=== PATIENT | male | born 1960 | race Caucasian/White ===

== ENCOUNTER 2022-05-12 17:23 | Emergency (ER) | payer OTHER ==
[~2022-05-12] VITALS: Ht 190.5 cm; Wt 108.9 kg
[2022-05-12 17:29] VITALS: BP 126/73
[2022-05-12 18:24] LABS: BASOPHILS # (AUTO) 0.1 K/uL (0.00-0.22); BASOPHILS % (AUTO) 1.2 % (0.0-2.0); EOSINOPHILS # (AUTO) 0.1 K/uL (0-0.4); EOSINOPHILS % (AUTO) 3.6 % (0.0-4.0); LYMPHOCYTES # (AUTO) 1.1 K/uL (2.0-11.5); LYMPHOCYTES % (AUTO) 26.6 % (20.5-51.1); MEAN CORPUSCULAR HEMOGLOBIN 31 pg (27-31); MEAN CORPUSCULAR HGB CONC 33 g/dL (33-37); MEAN CORPUSCULAR VOLUME 93.5 fL (80-94); MONOCYTES # (AUTO) 0.3 K/uL (0.8-1.0); MONOCYTES % (AUTO) 7.8 % (1.7-9.3); NEUTROPHILS # (AUTO) 2.5 K/uL (1.8-7.7); NEUTROPHILS % (AUTO) 60.8 % (42.2-75.2); PLATELET COUNT (AUTO) 188 K/uL (140-450); RED BLOOD CELL COUNT(AUTO) 3.85 MIL/uL (4.20-6.10); WHITE BLOOD COUNT (AUTO) 4.1 K/uL (4.8-10.8)
--- NOTE | 2022-05-12 18:30 | NUR ---
PT TAKEN TO CT VIA WC
[2022-05-12 18:54] LABS: ALBUMIN 3.6 g/dL (3.4-5.0); ANION GAP 10.9 (8-16); CARBON DIOXIDE 31.3 mmol/L (21-32); POTASSIUM 4.2 mmol/L (3.5-5.1); TOTAL BILIRUBIN 0.3 mg/dL (0.0-1.0)
[2022-05-12] MEDS ORDERED: KETOROLAC 60 MG/2 ML VIAL IM ONE (19:20)
--- NOTE | 2022-05-12 19:20 | NUR ---
DR YOUNG AT PT SIDE FOR EVAL
[2022-05-12] MEDS ORDERED: IBUP-2213 PO (19:25)
[2022-05-12 20:07] VITALS: BP 122/82
--- NOTE | 2022-05-12 20:07 | NUR ---
Patient discharged with v/s stable. Written and verbal after care instructions given and explained for abdominal pain, adult. Patient alert, oriented and verbalized understanding of instructions. Wheel Chair Assisted with by caregiver. All questions addressed prior to discharge. ID band removed. Patient advised to follow up with PMD. Rx of Ibuprofen given. Patient educated on indication of medication including possible reaction and side effects. Opportunity to ask questions provided and answered.
== END 2022-05-12 20:07 ==
LOC: MED 17:23
DX: R10.84 Generalized abdominal pain (principal); I10 Essential (primary) hypertension; E03.9 Hypothyroidism, unspecified; K21.9 Gastro-esophageal reflux disease without esophagitis
CPT/HCPCS: 36415; 74176; 80053; 83690; 85025; 96372; 99284; J1885

== ENCOUNTER 2022-06-04 20:15 | Inpatient (IN) | payer OTHER ==
[~2022-06-04] VITALS: Ht 172.7 cm; Wt 113.4 kg
[2022-06-04 20:15] VITALS: BP 137/87
[~2022-06-04 20:15] MED LIST: IBUP-2213 PO
--- NOTE | 2022-06-04 20:15 | NUR ---
NI WITH C/O SOB, FEVER, FROM [facility], SOA2 97 % ON NON REBREATHER 10L
--- NOTE | 2022-06-04 20:17 | NUR ---
MALIHA DAN ALS TO BED 03
[2022-06-04] MEDS ORDERED: NACL 0.9% 1,000 ML IV ONE (21:00)
[2022-06-04] MEDS ORDERED: VANCOMYCIN 1,000 MG in DEXTROSE 5% 250 ML IV ONE (21:20)
[2022-06-04] MEDS ORDERED: MEROPENEM 1,000 MG in NACL 0.9% 50 ML IV ONE (21:20)
[2022-06-04 21:21] LABS: BASOPHILS # (AUTO) 0.1 K/uL (0.00-0.22); BASOPHILS % (AUTO) 0.6 % (0.0-2.0); EOSINOPHILS % (AUTO) 0.4 % (0.0-4.0); HEMATOCRIT 36.7 % (36-52); HEMOGLOBIN 12.3 g/dL (12.0-18.0); LYMPHOCYTES # (AUTO) 0.7 K/uL (2.0-11.5); LYMPHOCYTES % (AUTO) 8.1 % (20.5-51.1); MEAN CORPUSCULAR HEMOGLOBIN 31 pg (27-31); MEAN CORPUSCULAR HGB CONC 34 g/dL (33-37); MEAN CORPUSCULAR VOLUME 93.1 fL (80-94); MONOCYTES # (AUTO) 0.8 K/uL (0.8-1.0); MONOCYTES % (AUTO) 8.3 % (1.7-9.3); NEUTROPHILS # (AUTO) 7.5 K/uL (1.8-7.7); NEUTROPHILS % (AUTO) 82.6 % (42.2-75.2); PLATELET COUNT (AUTO) 176 K/uL (140-450); RED BLOOD CELL COUNT(AUTO) 3.94 MIL/uL (4.20-6.10); RED CELL DISTRIBUTION WIDTH 15.3 % (11.6-13.7); WHITE BLOOD COUNT (AUTO) 9.1 K/uL (4.8-10.8)
[2022-06-04 21:47] LABS: ALBUMIN 3.7 g/dL (3.4-5.0); ANION GAP 9.9 (8-16); CARBON DIOXIDE 30.9 mmol/L (21-32); CREATININE 1.1 mg/dL (0.6-1.3); POTASSIUM 3.8 mmol/L (3.5-5.1); TOTAL BILIRUBIN 0.6 mg/dL (0.0-1.0)
[2022-06-04] MEDS ORDERED: VANCOMYCIN 1,000 MG VIAL ONE (21:47)
[2022-06-04] MEDS ORDERED: MEROPENEM 1,000 MG VIAL IV ONE (21:49)
[2022-06-05] VITALS: BP 131/82
--- NOTE | 2022-06-05 00:40 | NUR ---
TO 125B VIA GURNEY ACCOMPANIED BY RN AND ERT. ATTACHED TO CM
--- NOTE | 2022-06-05 01:30 | NUR ---
ADMITTED 61Y.O.M FROM ER. PLACED ON BED ORIENTED TO ROOM.CALL SYSTEM EXPLAINED AND IN REACH.PT IS AWAKE AND ALERT BUT DISORIENTED.RESP UNLABORED. SL PATENT IN LT.FA W/#22G.PT IS MENTALLY CHALLENGE AND UNABLE TO ANSWER MY QUESTIONS.ALL INFORMATION OBTAINED FROM FACILITY RECORD.TELE APPLIED AND SHOWING SR.WILL CONTINUE MONITORING.
[2022-06-05 04:00] VITALS: BP 129/80
--- NOTE | 2022-06-05 04:00 | NUR ---
SLEEPING.HR IS SR.VS WNL.NO DISTRESS NOTED.
--- NOTE | 2022-06-05 07:29 | NUR ---
ENDORSED TO AM RN IN STABLE CONDITION.
--- NOTE | 2022-06-05 07:30 | NUR ---
RECEIVED PATIENT REPORT FROM HEALTH UNIT COORDINATOR NURSE FOR CONTINUITY OF CARE. AOX2, VERBAL, HX OF INTELLECTUAL DISABILITY. ON 2L O2, NO DISTRESS NOTED. NO C/O PAIN. IV ON LFA 20 GAUGE, SALINE LOCKED. SKIN IS WARM, DRY, AND INTACT. DENIES PAIN AT THE MOMENT. PLAN OF CARE DISCUSSED. SAFETY PRECAUTIONS IN PLACE. CALL LIGHT WITHIN REACH. WILL CONTINUE TO MONITOR
[2022-06-05 08:00] VITALS: BP 132/85
--- NOTE | 2022-06-05 09:12 | NUR ---
PATIENT HAS BEEN SCREENED AND CATEGORIZED MODERATE NUTRITION RISK. PATIENT WILL BE SEEN WITHIN 3-5 DAYS OF ADMISSION. CORINNE HERNANDEZ RD
--- NOTE | 2022-06-05 09:30 | NUR ---
PT IN BED NO APPARENT DISTRESS
[2022-06-05 12:00] VITALS: BP 128/79
[2022-06-05] MEDS ORDERED: VANCOMYCIN PER PHARMACY MC PRN (12:35)
--- NOTE | 2022-06-05 13:00 | NUR ---
FIRST DOSE OF VANCOMYCIN IV GIVEN ORDERED
[2022-06-05] MEDS: VANCOMYCIN 1,000 MG in DEXTROSE 5% 250 ML IV SCH (13:17)
--- NOTE | 2022-06-05 13:50 | NUR ---
SEEN AND EXAMINED BY DR SANTANA
[2022-06-05] MEDS ORDERED: IBUPROFEN 600 MG TAB PO PRN (13:55)
[2022-06-05] MEDS ORDERED: ACETAMINOPHEN 325 MG TAB PO PRN (13:55)
[2022-06-05] MEDS ORDERED: ONDANSETRON 4 MG/2 ML VIAL IVP PRN (13:55)
[2022-06-05 16:00] VITALS: BP 138/90
[2022-06-05 16:55] LABS: BILIRUBIN,URINE NEGATIVE (NEGATIVE); BLOOD, URINE 2+ (NEGATIVE); COLOR,URINE YELLOW (YELLOW); LEUKOCYTE ESTERASE ,URINE NEGATIVE (NEGATIVE); NITRITE, URINE NEGATIVE (NEGATIVE); PH,URINE 6.5 (5.0-9.0); UGLUCOSE NEGATIVE (NEGATIVE)
--- NOTE | 2022-06-05 17:00 | NUR ---
NO SIGNIFICANT CHANGE NOTED, RESTING IN BED, NO S/S OF PAIN, NO RESPIRATORY DISTRESS
[2022-06-05 17:16] LABS: APPEARANCE,URINE HAZY (CLEAR)
[2022-06-05 17:17] LABS: RBC,URINE 11-20 (MOD) /HPF (0-5)
[2022-06-05] MEDS: PIPERACILLIN/TAZOBACTAM 3.375 GM in DEXTROSE 5% 50 ML IV SCH ×2 (17:55→23:00)
--- NOTE | 2022-06-05 19:05 | NUR ---
RECEIVED REPORT FROM AM RN. PATIENT IS AWAKE, ALERT AND ORIENTED X2-3. DENIES PAIN AT THIS TIME. NO ACUTE RESPIRATORY DISTRESS NOTED. SKIN WARM AND DRY TO TOUCH. BED IN THE LOWEST AND LOCKED POSITION FOR SAFETY, CALL LIGHT WITHIN REACH.
[2022-06-05 20:00] VITALS: BP 158/95
--- NOTE | 2022-06-05 21:36 | NUR ---
INCONTINENT OF URINE, PERINEAL CARE RENDERED. MADE COMFORTABLE IN BED, CALL LIGHT IN REACH.
[2022-06-06] VITALS: BP 126/80
--- NOTE | 2022-06-06 | NUR ---
PATIENT ASLEEP. BREATHING EVEN AND UNLABORED. CALL LIGHT WITHIN REACH.
--- NOTE | 2022-06-06 02:05 | NUR ---
ROUNDING DONE. PATIENT IS ASLEEP. NO S/SX OF PAIN NOR DISCOMFORT. CALL LIGHT IN REACH.
--- NOTE | 2022-06-06 03:45 | NUR ---
INCONTINENT OF URINE, PERINEAL CARE RENDERED.
[2022-06-06 04:00] VITALS: BP 130/86
[2022-06-06] MEDS: PIPERACILLIN/TAZOBACTAM 3.375 GM in DEXTROSE 5% 50 ML IV SCH ×4 (05:00→23:25)
--- NOTE | 2022-06-06 06:10 | NUR ---
PATIENT IS ASLEEP. NO DISTRESS NOTED. ALL NEEDS ATTENDED TO. SAFETY PRECAUTIONS MAINTAINED DURING THE SHIFT, CALL LIGHT REMAINED WITHIN REACH.
[2022-06-06 06:34] LABS: BASOPHILS % (AUTO) 0.5 % (0.0-2.0); EOSINOPHILS # (AUTO) 0.1 K/uL (0-0.4); EOSINOPHILS % (AUTO) 0.8 % (0.0-4.0); HEMATOCRIT 38.2 % (36-52); LYMPHOCYTES # (AUTO) 0.8 K/uL (2.0-11.5); LYMPHOCYTES % (AUTO) 9.1 % (20.5-51.1); MEAN CORPUSCULAR HEMOGLOBIN 31 pg (27-31); MEAN CORPUSCULAR HGB CONC 34 g/dL (33-37); MEAN CORPUSCULAR VOLUME 92.4 fL (80-94); MONOCYTES # (AUTO) 0.7 K/uL (0.8-1.0); MONOCYTES % (AUTO) 7.8 % (1.7-9.3); NEUTROPHILS % (AUTO) 81.8 % (42.2-75.2); PLATELET COUNT (AUTO) 148 K/uL (140-450); RED BLOOD CELL COUNT(AUTO) 4.14 MIL/uL (4.20-6.10); RED CELL DISTRIBUTION WIDTH 15.4 % (11.6-13.7)
[2022-06-06 07:16] LABS: ANION GAP 10.2 (8-16); CARBON DIOXIDE 29.7 mmol/L (21-32); CREATININE 0.9 mg/dL (0.6-1.3); POTASSIUM 3.9 mmol/L (3.5-5.1)
--- NOTE | 2022-06-06 07:18 | NUR ---
REPORT GIVEN TO AM NURSE. PATIENT IS ASLEEP. NO DISTRESS NOTED.
--- NOTE | 2022-06-06 07:30 | NUR ---
RECEIVED PATIENT REPORT FROM SEWER PIPE CLEANER NURSE FOR CONTINUITY OF CARE. AOX3, VERBAL, HX OF INTELLECTUAL DISABILITY. ON 2L O2, NO DISTRESS NOTED. NO C/O PAIN. IV ON LFA 20 GAUGE, SALINE LOCKED. SKIN IS WARM, DRY, AND INTACT. DENIES PAIN AT THE MOMENT. PLAN OF CARE DISCUSSED. SAFETY PRECAUTIONS IN PLACE. CALL LIGHT WITHIN REACH. WILL CONTINUE TO MONITOR
[2022-06-06 07:42] LABS: WHITE BLOOD COUNT (AUTO) 8.5 K/uL (4.8-10.8)
[2022-06-06 08:00] VITALS: BP 135/93
--- NOTE | 2022-06-06 09:30 | NUR ---
PT IN BED NO APPARENT DISTRESS, NO C/O PAIN
[2022-06-06 12:00] VITALS: BP 142/89
--- NOTE | 2022-06-06 12:00 | NUR ---
RFA 20G IV PULLED OUT, LUMEN INTACT. REINSERTED TO PROXIMAL RFA 20G X 1 ATTEMPT
[2022-06-06] MEDS: VANCOMYCIN 1,000 MG in DEXTROSE 5% 250 ML IV SCH ×4 (13:11→20:39)
--- NOTE | 2022-06-06 14:30 | NUR ---
PT ASLEEP IN BED, NO APPARENT DISTRESS
--- NOTE | 2022-06-06 15:00 | NUR ---
SEEN AND EXAMINED BY DR SANTANA
[2022-06-06 16:00] VITALS: BP 121/77
--- NOTE | 2022-06-06 18:06 | NUR ---
NO SIGNIFICANT CHANGE NOTED, RESTING IN BED, NO S/S OF PAIN, NO RESPIRATORY DISTRESS
--- NOTE | 2022-06-06 18:55 | NUR ---
pt with c/o abd pain 05/09, abd appears distended, bladder scan done 150ml, pt has been having normal BMs. norco given as ordered. notified Dr Brunson, ordered KUB. Order noted and carried out
[2022-06-06] MEDS: HYDROcodone/APAP 5/325 MG 1 TAB TAB PO PRN ×2 (19:02→23:17)
--- NOTE | 2022-06-06 19:30 | NUR ---
RECEIVED BEDSIDE REPORT FROM DAY SHIFT RN FOR CONTINUITY OF CARE. PT IS AWAKE LAYING IN BED COMFORTABLY. PT IS NOT IN ANY ACUTE DISTRESS. PT IS ON NC 2L. PT IS SATING 93%. PT HAS LEFT FOREARM 20 GAUGE ON TKO. PLAN OF CARE DISCUSSED. WILL CONTINUE TO MONITOR THE PT.
[2022-06-06 20:00] VITALS: BP 143/93
--- NOTE | 2022-06-06 20:44 | NUR ---
ALL DUE MEDS GIVEN. NO ADVERSE REACTION NOTED. WILL CONTINUE TO MONITOR THE PT.
--- NOTE | 2022-06-06 23:25 | NUR ---
PT COMPLAINS OF ABD PAIN. NORCO WAS GIVEN PER MD ORDER. NO OTHER COMPLAINS. WILL CONTINUE TO MONITOR THE PT.
[2022-06-07] VITALS: BP 141/89
--- NOTE | 2022-06-07 02:14 | NUR ---
PT IS SLEEPING COMFORTABLY IN BED. PT IS NOT IN ANY RESPIRATORY DISTRESS. CALL LIGHT WITHIN REACH. ALL SAFETY MEASURES TAKEN. WILL CONTINUE TO MONITOR THE PT.
[2022-06-07] MEDS: HYDROcodone/APAP 5/325 MG 1 TAB TAB PO PRN ×2 (03:51→14:13)
[2022-06-07 04:00] VITALS: BP 145/92
[2022-06-07] MEDS: VANCOMYCIN 1,000 MG in DEXTROSE 5% 250 ML IV SCH ×3 (04:01→20:06)
--- NOTE | 2022-06-07 04:40 | NUR ---
PT WAS CLEANED AND CHANGED. PT HAD LARGE BM.
[2022-06-07] MEDS: PIPERACILLIN/TAZOBACTAM 3.375 GM in DEXTROSE 5% 50 ML IV SCH ×3 (05:41→17:12)
[2022-06-07 06:07] LABS: ALBUMIN 3.2 g/dL (3.4-5.0); ANION GAP 13.8 (8-16); CARBON DIOXIDE 27.1 mmol/L (21-32); POTASSIUM 3.9 mmol/L (3.5-5.1); TOTAL BILIRUBIN 0.6 mg/dL (0.0-1.0)
[2022-06-07 06:11] LABS: BASOPHILS % (AUTO) 0.7 % (0.0-2.0); EOSINOPHILS # (AUTO) 0.2 K/uL (0-0.4); EOSINOPHILS % (AUTO) 3.2 % (0.0-4.0); HEMATOCRIT 37.6 % (36-52); HEMOGLOBIN 12.8 g/dL (12.0-18.0); LYMPHOCYTES # (AUTO) 0.8 K/uL (2.0-11.5); MEAN CORPUSCULAR HEMOGLOBIN 32 pg (27-31); MEAN CORPUSCULAR HGB CONC 34 g/dL (33-37); MEAN CORPUSCULAR VOLUME 92.5 fL (80-94); MONOCYTES # (AUTO) 0.5 K/uL (0.8-1.0); MONOCYTES % (AUTO) 8.4 % (1.7-9.3); NEUTROPHILS # (AUTO) 4.4 K/uL (1.8-7.7); NEUTROPHILS % (AUTO) 74.7 % (42.2-75.2); PLATELET COUNT (AUTO) 149 K/uL (140-450); RED BLOOD CELL COUNT(AUTO) 4.06 MIL/uL (4.20-6.10); RED CELL DISTRIBUTION WIDTH 14.9 % (11.6-13.7); WHITE BLOOD COUNT (AUTO) 5.9 K/uL (4.8-10.8)
--- NOTE | 2022-06-07 07:19 | NUR ---
ENDORSED PT TO DAY SHIFT RN FOR CONTINUITY OF CARE. PT IS STABLE.
--- NOTE | 2022-06-07 07:20 | NUR ---
RECEIVED BEDSIDE REPORT FROM LOCAL COORDINATOR NURSE FOR CONTINUOUS OF CARE, PT RESTING, NO DISTRESS NOTED, IV TO LEFT FA 20G, PATENT INTACT, RUNNING NS @ TKO. PT ON 4LPM O2 VIA NC, NO SOB NOTED, INITIAL ASSESSMENT DONE, ALL SAFETY PRECAUTION MET, CALL LIGHT WITHIN REACH, WILL CONTINUE TO MONITOR.
[2022-06-07 08:00] VITALS: BP 142/88
--- NOTE | 2022-06-07 10:49 | NUR ---
SPOKE TO DR SANTANA REGARDING CT RESULT FROM DR. MELTON, PER DR TO ORDER CT ABD/PELVIS. WILL CONTINUE WITH ORDERS.
--- NOTE | 2022-06-07 11:45 | NUR ---
PT DESATURATING ON 6L NC SPO2 84%. PT WILL BE PLACED ON 8L OXYMIZER. NURSE AWARE.
[2022-06-07] MEDS: ALBUTEROL SULFATE/IPRATROPIU 3 ML SOL IH PRN ×2 (11:55→18:49)
[2022-06-07 12:00] VITALS: BP 144/78
[2022-06-07 13:06] LABS: ANION GAP 11.3 (8-16); CARBON DIOXIDE 30.5 mmol/L (21-32); CREATININE 0.9 mg/dL (0.6-1.3); POTASSIUM 3.8 mmol/L (3.5-5.1)
--- NOTE | 2022-06-07 14:13 | NUR ---
PT STATED HAVING ABD PAIN, MEDICATION PER DR ORDER GIVEN, WILL CONTINUE TO MONITOR.
--- NOTE | 2022-06-07 14:23 | NUR ---
RECEIVED CALL FROM DR MELTON REGARDING CT RESULT, PER DR JETT NEEDS SURGICAL INTERVENTION FOR INTERNAL HERNIA. NOTIFIED DR SANTANA. AWAITING FOR REPLY.
--- NOTE | 2022-06-07 14:45 | NUR ---
DC PLANNIN YRS OLD MALE PATIENT WAS ADMITTED FROM [facility] (CARE HOME) WITH A DX OF PNEUMONIA. PATIENT HAS A HX OF GERD, HTN, SEIZURE DISORDER, INTELLECTUAL DISABILITY ,HLD AND OSTEOARTHRITIS. CXR SHOWED MILD BIBASILAR OPACITIES. KUB AND CT ABD SHOWED SBO. ADMINISTERED IVF, IV ABX VANCOMYCIN AND ZOSYN. CONSULTED WITH ID DR JIMENEZ. DC PLAN TO RETURN TO [facility]. CM TO FOLLOW Addendum: 06/09/22 at 1600 by Chelsey Calvo RN DC PLANNING: SEEN BY MYA BERGER REMAINS ON 8LOXIMYZER, CONTINUE O2 TITRATION. AWAITING FOR DR MCCLOUD SURGEON FOR ABDOMINAL HERNIA. CONTINUE IV ABX VANCO AND ZOSYN. DC PLAN TO RETURN TO [facility] WHEN STABLE. CM TO FOLLOW Addendum: 06/11/22 at 1548 by Chelsey Calvo RN DC PLANNING: CALLED [facility] SPOKE WITH LEV STATED PATIENT WAS ON OXYGEN BEFORE AND WILLING TO TAKE HIM. IF PT GET DC ON THE WEEKEND PLS CALL THE FACILITY [phone] CM TO FOLLOW
--- NOTE | 2022-06-07 15:29 | NUR ---
SPOKE TO DR SANTANA REGARDING PT C/O PAIN, STATED THAT HE IS STILL IN PAIN DESPITE GIVEN NORCO [address] TO ORDER MORPHINE 1MG IVP Q4H PRN PAIN, AND TO ORDER CONSULT WITH DR DAY FOR THE ABD INTERNAL HERNIA, WILL CONTINUE WITH ORDERS.
--- NOTE | 2022-06-07 15:31 | NUR ---
NOTIFIED DR DAY REGARDING NEW CONSULT, AWAITING FOR CALL BACK.
[2022-06-07] MEDS: MORPHINE SULFATE 2 MG/ML SYR IVP PRN (15:44)
[2022-06-07 16:00] VITALS: BP 148/86
--- NOTE | 2022-06-07 17:26 | NUR ---
ATTEMPTED TO PUT NGT, PT REFUSED INSERTION, NOTIFIED DR SANTANA, STATED UNDERSTANDING, TO WAIT FOR SURGEON. WILL CONTINUE TO MONITOR.
[2022-06-07] MEDS: DEXT 5% / NACL 0.45% 1,000 ML IV SCH (17:43)
--- NOTE | 2022-06-07 19:15 | NUR ---
ENDORSED PT TO DRAFTING INSTRUCTOR NURSE FOR CONTINUOUS OF CARE.
--- NOTE | 2022-06-07 19:30 | NUR ---
RECEIVED BEDSIDE REPORT FROM DAY SHIFT RN FOR CONTINUITY OF CARE. PT IS AWAKE LAYING IN BED COMFORTABLY. PT IS NOT IN ANY ACUTE DISTRESS. PT IS ON OXYMIZER 6L. PT IS SATING 90%. PT HAS LEFT FOREARM 20 GAUGE ON D5 1/2NS 100 CC/HR. . PLAN OF CARE DISCUSSED. WILL CONTINUE TO MONITOR THE PT.
[2022-06-07 20:00] VITALS: BP 136/64
--- NOTE | 2022-06-07 20:15 | NUR ---
SCHEDULE MEDS GIVEN. NO ADVERSE REACTION NOTED. PT DENIES ANY PAIN AND HAS NO COMPLAIN. WILL CONTINUE TO MONITOR THE PT.
--- NOTE | 2022-06-07 23:35 | NUR ---
ENDORSED PT TO MANAGER ONLINE LIUDMILA GORMAN FOR CONTINUITY OF CARE. PT IS TABLE.
--- NOTE | 2022-06-07 23:48 | NUR ---
RECEIVED PATIENT FROM MUKUL RN IN BED ASLEEP WITH LEFT EYE OPEN. PATIENT WAS STABLE DURING THE SHIFT REPORT. PATIENT HAS OXYMIZER NOTED AND CHEST IS RISING AND FALLING WITHOUT INCIDENT. NURSING NOTED PATIENT WAS SNORING ON EXHALATION. HEAD OF BED ELEVATED TO PROMOTE RESPIRATORY IMPROVEMENT. SIDE RAILS UP X 3. PATIENT WAS KEPT CLEAN AND DRY. NO NOTED FEVER AT THIS TIME. CALL LIGHT IN REACH FOR ENTERTAINMENT PURPOSES. NURSING WILL FREQUENT THIS ROOM OF ANTICIPATED NEEDS. [email or web address]
[2022-06-08] VITALS: BP 125/60
[2022-06-08] MEDS: PIPERACILLIN/TAZOBACTAM 3.375 GM in DEXTROSE 5% 50 ML IV SCH ×5 (00:04→23:04)
--- NOTE | 2022-06-08 01:26 | NUR ---
DURING ROUNDS NURSING NOTED PATIENT REMAINED ASLEEP. NO NOTED DISTRESS. NO NOTED FACIAL GRIMACE TO INDICATE PAIN/DISCOMFORT. SIDE RAILS UP X3 CALL LIGHT WITHIN REACH. [email or web address]
[2022-06-08] MEDS: DEXT 5% / NACL 0.45% 1,000 ML IV SCH ×3 (03:20→20:58)
[2022-06-08] MEDS: MORPHINE SULFATE 2 MG/ML SYR IVP PRN ×3 (03:33→18:20)
--- NOTE | 2022-06-08 03:37 | NUR ---
PATIENT NOTED IN BED AWAKE COMPLAINED OR ABDOMINAL PAIN, COVERING RN GAVE PRN MEDICATION FOR COMFORT. HELP DESK SPECIALIST WAS NOTIFIED TO CHANGE PATIENT FROM WET CHUX. SIDE RAILS UP X 3. CALL LIGHT WITHIN REACH. NURSING WILL FREQUENT THIS ROOM TO ENSURE NEEDS MET AND FOR ASSISTANCE. [email or web address]
[2022-06-08 04:00] VITALS: BP 130/68
[2022-06-08] MEDS: VANCOMYCIN 1,000 MG in DEXTROSE 5% 250 ML IV SCH ×3 (04:05→20:57)
[2022-06-08 05:53] LABS: BASOPHILS % (AUTO) 0.5 % (0.0-2.0); EOSINOPHILS % (AUTO) 0.4 % (0.0-4.0); HEMATOCRIT 37.2 % (36-52); HEMOGLOBIN 12.6 g/dL (12.0-18.0); LYMPHOCYTES # (AUTO) 0.3 K/uL (2.0-11.5); MEAN CORPUSCULAR HEMOGLOBIN 31 pg (27-31); MEAN CORPUSCULAR HGB CONC 34 g/dL (33-37); MEAN CORPUSCULAR VOLUME 91.5 fL (80-94); MONOCYTES # (AUTO) 0.4 K/uL (0.8-1.0); MONOCYTES % (AUTO) 7.8 % (1.7-9.3); NEUTROPHILS # (AUTO) 4.8 K/uL (1.8-7.7); NEUTROPHILS % (AUTO) 85.3 % (42.2-75.2); PLATELET COUNT (AUTO) 168 K/uL (140-450); RED BLOOD CELL COUNT(AUTO) 4.07 MIL/uL (4.20-6.10); RED CELL DISTRIBUTION WIDTH 14.9 % (11.6-13.7); WHITE BLOOD COUNT (AUTO) 5.6 K/uL (4.8-10.8)
--- NOTE | 2022-06-08 05:54 | NUR ---
NURSING NOTED PATIENT IN BED ASLEEP. NO S/S OF PAIN/DISCOMFORT. KEPT CLEAN AND DRY. ALL NEEDS ANTICIPATED. CALL LIGHT WITHIN REACH BUT PATIENT DOES NOT USE THE CALL LIGHT WHEN NEEDED. NURSING WILL INFORM THE ONCOMING SHIFT TO FREQUENT THIS ROOM BECAUSE PATIENT DOES NOT USE THE CALL LIGHT WHEN NEEDED. [email or web address]
[2022-06-08 06:03] LABS: ANION GAP 12.7 (8-16); CARBON DIOXIDE 29.2 mmol/L (21-32); CREATININE 0.9 mg/dL (0.6-1.3); POTASSIUM 3.9 mmol/L (3.5-5.1)
--- NOTE | 2022-06-08 07:29 | NUR ---
GAVE SHIFT REPORT TO SHADI PUENTE, PATIENT WAS STABLE DURING SHIFT REPORT. [email or web address]
--- NOTE | 2022-06-08 07:30 | NUR ---
RECEIVED BEDSIDE REPORT FROM TRAVEL ACCOMMODATIONS RATER NURSE FOR CONTINUOUS OF CARE, PT RESTING, NO DISTRESS NOTED, IV TO LEFT FA 20G, PATENT INTACT, RUNNING D5NS @ 100ML/HR. PT ON 8LPM O2 VIA OXYMIZER, NO SOB NOTED, INITIAL ASSESSMENT DONE, ALL SAFETY PRECAUTION MET, CALL LIGHT WITHIN REACH, WILL CONTINUE TO MONITOR.
[2022-06-08 08:00] VITALS: BP 151/90
--- NOTE | 2022-06-08 10:22 | NUR ---
CALLED DR MCCLOUD'S OFFICE SPOKE TO DORI REGARDING CONSULT, WAS TOLD WILL BE FORWARDED TO DR MCCLOUD. WILL FOLLOW UP.
[2022-06-08 12:00] VITALS: BP 136/96
--- NOTE | 2022-06-08 12:12 | NUR ---
DR MCCLOUD AT BEDSIDE PER DR TO ORDER SMALL BOWEL FOLLOW THROUGH, WILL CONTINUE WITH ORDERS.
[2022-06-08 16:00] VITALS: BP 137/92
--- NOTE | 2022-06-08 19:18 | NUR ---
ENDORSED PT TO MANAGER LEASING NURSE FOR CONTINUOUS OF CARE.
--- NOTE | 2022-06-08 19:19 | NUR ---
RECEIVED PATIENT REPORT FROM SHADI PUENTE, PATIENT WAS AWAKE AND STABLE IN BED. PATIENT HAS OXYMIZER NOTED AND CHEST IS RISING AND FALLING WITHOUT INCIDENT. PATIENT INFORMED NURSING HE GOT PAIN MEDICATION FOR HIS STOMACH PAIN, NURSING ACKNOWLEDGE AND WILL CHART HE DENIES PAIN AT THIS TIME. HEAD OF BED ELEVATED TO PROMOTE RESPIRATORY IMPROVEMENT. SIDE RAILS UP X 3. PATIENT WAS KEPT CLEAN AND DRY. NO NOTED FEVER AT THIS TIME. CALL LIGHT IN REACH FOR ENTERTAINMENT PURPOSES. NURSING WILL FREQUENT THIS ROOM OF ANTICIPATED NEEDS. [email or web address]
[2022-06-08 20:00] VITALS: BP 136/71
--- NOTE | 2022-06-08 20:35 | NUR ---
Patient's Plan of Care was discussed and reviewed with BRANDY NUR.
--- NOTE | 2022-06-08 21:40 | NUR ---
DURING ROUNDS NURSE NOTE PATIENT IN BED ASLEEP. NO NOTED DISTRESS/PAIN. NO NOTED RESPIRATORY DISTRESS. KEPT CLEAN AND DRY NURSING WILL FREQUENT ROOM FOR ASSISTANCE. [email or web address]
--- NOTE | 2022-06-08 23:33 | NUR ---
PATIENT WAS CHANGED. LARGE BROWN SMELLY BOWEL MOVEMENT. PATIENT WAS WASHED OFF AND KEPT CLEAN AND DRY. PATIENT WAS ABLE TO USE THE CALL LIGHT TO REQUEST CHANGING. NURSING ENCOURAGED FOR ALL ASSISTANCE AND NEEDS. SIDE RAILS UP X 3. CALL LIGHT WITHIN REACH. [email or web address]
[2022-06-09] VITALS: BP 149/87
[2022-06-09] MEDS: MORPHINE SULFATE 2 MG/ML SYR IVP PRN ×4 (00:32→18:56)
--- NOTE | 2022-06-09 00:35 | NUR ---
PATIENT IS COMPLAINING OF PAIN 8/10, MORPHINE 1 MG IV PRN IS GIVEN PER DOCTOR ORDER, VITAL SIGN IS WITHIN THE NORMAL RANGE, CALL LIGHT IS WITHIN THE REACH, WILL CONTINUE TO MONITOR PATIENT.
--- NOTE | 2022-06-09 01:15 | NUR ---
PATIENT IN BED ASLEEP. NO NOTED DISTRESS/PAIN. NO NOTED RESPIRATORY DISTRESS. KEPT CLEAN AND DRY NURSING WILL FREQUENT ROOM FOR ASSISTANCE. [email or web address]
--- NOTE | 2022-06-09 03:43 | NUR ---
PATIENT IN BED ASLEEP. NO NOTED DISTRESS/PAIN. NO NOTED RESPIRATORY DISTRESS. KEPT CLEAN AND DRY NURSING WILL FREQUENT ROOM FOR ASSISTANCE. [email or web address]
[2022-06-09 04:00] VITALS: BP 127/47
[2022-06-09] MEDS: VANCOMYCIN 1,000 MG in DEXTROSE 5% 250 ML IV SCH ×2 (04:12→14:40)
[2022-06-09] MEDS: PIPERACILLIN/TAZOBACTAM 3.375 GM in DEXTROSE 5% 50 ML IV SCH ×4 (05:15→23:15)
[2022-06-09 05:26] LABS: BASOPHILS # (AUTO) 0.1 K/uL (0.00-0.22); BASOPHILS % (AUTO) 1.2 % (0.0-2.0); EOSINOPHILS # (AUTO) 0.1 K/uL (0-0.4); EOSINOPHILS % (AUTO) 1.5 % (0.0-4.0); HEMATOCRIT 38.2 % (36-52); LYMPHOCYTES # (AUTO) 0.5 K/uL (2.0-11.5); LYMPHOCYTES % (AUTO) 11.4 % (20.5-51.1); MEAN CORPUSCULAR HEMOGLOBIN 31 pg (27-31); MEAN CORPUSCULAR HGB CONC 34 g/dL (33-37); MONOCYTES # (AUTO) 0.6 K/uL (0.8-1.0); MONOCYTES % (AUTO) 13.5 % (1.7-9.3); NEUTROPHILS # (AUTO) 3.3 K/uL (1.8-7.7); NEUTROPHILS % (AUTO) 72.4 % (42.2-75.2); PLATELET COUNT (AUTO) 164 K/uL (140-450); RED BLOOD CELL COUNT(AUTO) 4.16 MIL/uL (4.20-6.10); RED CELL DISTRIBUTION WIDTH 14.9 % (11.6-13.7); WHITE BLOOD COUNT (AUTO) 4.6 K/uL (4.8-10.8)
--- NOTE | 2022-06-09 05:36 | NUR ---
PATIENT WAS CLEANED FROM BOWEL MOVEMENT. PATIENT WAS GIVEN A BED BATH. HEAD OF BED ELEVATED TO IMPROVE BREATHING. NO COMPLAINT OF PAIN/DISCOMFORT. NO NOTED RESPIRATORY DISTRESS. PATIENT TOLERATED IT WELL. SIDE RAILS UP 3 FOR SAFETY. CALL LIGHT IN REACH FOR ASSISTANCE. [email or web address].
[2022-06-09 06:24] LABS: ALBUMIN 3.4 g/dL (3.4-5.0); ANION GAP 9.8 (8-16); CARBON DIOXIDE 32.9 mmol/L (21-32); CREATININE 1.1 mg/dL (0.6-1.3); POTASSIUM 3.7 mmol/L (3.5-5.1); TOTAL BILIRUBIN 0.7 mg/dL (0.0-1.0)
--- NOTE | 2022-06-09 07:38 | NUR ---
MANUAL SHIFT REPORT WAS GIVEN TO DEPOSITING MACHINE OPERATORMARIO ENGLISH FOR LAZARA PUENTE TO TAKE OVER CARE FOR THIS PATIENT. [email or web address]
--- NOTE | 2022-06-09 07:44 | NUR ---
GAVE SHIFT REPORT TO LAZARA PUENTE, PATIENT WAS STABLE DURING CHANGE OF SHIFT. [email or web address]
--- NOTE | 2022-06-09 07:47 | NUR ---
RECEIVED PATIENT FROM TOOLS ADMINISTRATOR NURSE FOR CONTINUITY OF CARE. PT IS AOX4, ABLE TO MAKE NEEDS KNOWN. RESPIRATIONS EVEN AND UNLABORED. ON 8L OXIMIZER, WITH NO DISTRESS NOTED. IV ON RH 22 G INFUSING FLUIDS ORDERED. PATIENT DENIES PAIN. PLAN OF CARE DISCUSSED SAFETY PRECAUTIONS IN PLACE. CALL LIGHT WITHIN REACH. WILL CONTINUE TO MONITOR.
[2022-06-09 08:00] VITALS: BP 143/90
[2022-06-09] MEDS: DEXT 5% / NACL 0.45% 1,000 ML IV SCH ×3 (08:43→23:19)
--- NOTE | 2022-06-09 08:50 | NUR ---
ALL SCHEDULED MEDS GIVEN. PT IS STABLE. NO DISTRESS NOTED. WILL CONTINUE TO MONITOR.
--- NOTE | 2022-06-09 11:30 | NUR ---
ENDORSED TO KAYLEE HSU RN FOR CONTINUITY OF CARE. PT IS STABLE.
--- NOTE | 2022-06-09 11:31 | NUR ---
RECEIVED REPORT FROM LAZARA PUENTE FOR CONTINUOUS OF CARE.
--- NOTE | 2022-06-09 11:36 | NUR ---
DC PLANNING SW ATTEMPTED TO MEET WITH PATIENT AT BEDSIDE TO GATHER COLLATERAL INFORMATION, HOWEVER, PATIENT STRUGGLED TO PARTICIPATE IN ASSESSMENT. PT REQUESTED THAT SW CALL EMERGENCY CONTACT ON FILE TO CONFIRM INFORMATION. SW OUTREACHED TO PT'S EMERGENCY CONTACT; NO CONTACT MADE. HIPAA COMPLIANT MESSAGE WAS LEFT REQUESTING A RETURN PHONE CALL. Addendum: 06/10/22 at 1407 by Cleve Louie SS SW OUTREACHED TO [facility] AND SPOKE WITH LILIAM, &C ADMIN, TO GATHER COLLATERAL INFORMATION. ADMIN REPORTS THAT PATIENT IS A RECENT ADMISSION AND HAS BEEN RESIDENT SINCE APRIL 2022. PT WAS PREVIOUSLY IN [facility] HOWEVER, ADMIN UNABLE TO RECALL NAME OF FACILITY. PATIENT HX OF INTELLECTUAL DISABILITY. PATIENT IS REGIONAL CENTER CONNECTED, [facility], . PT'S SISTER, DORI JONES IS ACTIVE SUPPORT FOR PT AND CALLS WEEKLY. PT REQUIRES ASSISTANCE WITH ALL ADL'S AND UTILIZES DME; FWW AND WC HOWEVER, STAFF MUST BE WITH PT WHEN AMBULATORY. LILIAM REPORTS THAT ALL CARE GIVING NEEDS ARE MET BY JAIL STAFF. PATIENT IS MEDICATION COMPLAINT AND IS GIVEN MEDS BY FACILITY STAFF IN AM AND PM. ALL APPROPRIATE PERSONS; PT'S SISTER &RC KEELEY, HAVE BEEN NOTIFIED BY & STAFF, THAT PATIENT IS CURRENTLY AT [facility] RECEIVING [place]. DC PLAN ARE FOR PATIENT TO RETURN TO [facility] ONCE CLINICALLY STABLE.
[2022-06-09 12:00] VITALS: BP 160/97
--- NOTE | 2022-06-09 15:14 | NUR ---
06/09/22 RD INITIAL ASSESSMENT COMPLETED PLEASE REFER TO NUTRITION ASSESSMENT UNDER CARE ACTIVITY FOR ESTIMATED NUTRITIONAL NEEDS. 1. IF/WHEN MEDICALLY APPROPRIATE ADVANCE TO CARDIAC DIET TOLERATED -RECOMMEND ENSURE BID FOR NUTRITION SUPPORT 2. MONITOR PO INTAKE AND GI SYMPTOMS 3. RD TO FOLLOW-UP 2-3 DAYS, HIGH RISK REVIEWED BY CORINNE HERNANDEZ RD
[2022-06-09 16:00] VITALS: BP 138/87
--- NOTE | 2022-06-09 19:23 | NUR ---
ENDORSED PT TO AIRPLANE FLIGHT ATTENDANT NURSE FOR CONTINUOUS OF CARE.
--- NOTE | 2022-06-09 19:24 | NUR ---
RECEIVED PATIENT FROM DAY SHIFT NURSE FOR CONTINUITY OF CARE. PT IS AOX4, RESPIRATIONS EVEN AND UNLABORED. ON 9L OXIMIZER,O2 SAT AT 93% WITH NO DISTRESS NOTED. IV ON R THUMB, 22 G INFUSING FLUIDS ORDERED. PATIENT DENIES PAIN. PLAN OF CARE DISCUSSED SAFETY PRECAUTIONS IN PLACE. CALL LIGHT WITHIN REACH. WILL CONTINUE TO MONITOR.
[2022-06-09 20:00] VITALS: BP 148/89
--- NOTE | 2022-06-09 22:30 | NUR ---
PATIENT WAS CHANGED.PT KEPT CLEAN AND DRY. PATIENT WAS ABLE TO USE THE CALL LIGHT TO REQUEST CHANGING.ALL PRECAUTIONS IN PLACE.CALL LIGHT WITHIN REACH. WILL CONTINUE TO MONITOR.
[2022-06-09] MEDS: METOCLOPRAMIDE 10 MG/2 ML INJ VIAL IVP SCH (23:19)
[2022-06-10] VITALS: BP 140/70
--- NOTE | 2022-06-10 | NUR ---
ALL SCHEDULED MEDS GIVEN. PT IS STABLE. NO DISTRESS NOTED. WILL CONTINUE TO MONITOR.
--- NOTE | 2022-06-10 02:30 | NUR ---
PATIENT ASLEEP. BREATHING EVEN AND UNLABORED.NO DISTRESS NOTED.ALL PRECAUTIONS IN PLACE. CALL LIGHT WITHIN REACH. WILL CONTINUE TO MONITOR.
[2022-06-10 04:00] VITALS: BP 139/69
[2022-06-10] MEDS: PIPERACILLIN/TAZOBACTAM 3.375 GM in DEXTROSE 5% 50 ML IV SCH ×3 (05:30→18:00)
--- NOTE | 2022-06-10 05:30 | NUR ---
ALL SCHEDULED MEDS GIVEN. PT IS STABLE. NO DISTRESS NOTED. WILL CONTINUE TO MONITOR.
[2022-06-10] MEDS: METOCLOPRAMIDE 10 MG/2 ML INJ VIAL IVP SCH ×2 (05:55→12:27)
[2022-06-10 06:08] LABS: BASOPHILS # (AUTO) 0.1 K/uL (0.00-0.22); BASOPHILS % (AUTO) 1.3 % (0.0-2.0); EOSINOPHILS # (AUTO) 0.1 K/uL (0-0.4); EOSINOPHILS % (AUTO) 2.9 % (0.0-4.0); HEMATOCRIT 36.3 % (36-52); HEMOGLOBIN 12.3 g/dL (12.0-18.0); LYMPHOCYTES # (AUTO) 0.8 K/uL (2.0-11.5); LYMPHOCYTES % (AUTO) 17.6 % (20.5-51.1); MEAN CORPUSCULAR HEMOGLOBIN 31 pg (27-31); MEAN CORPUSCULAR HGB CONC 34 g/dL (33-37); MEAN CORPUSCULAR VOLUME 92.4 fL (80-94); MONOCYTES # (AUTO) 0.9 K/uL (0.8-1.0); MONOCYTES % (AUTO) 18.7 % (1.7-9.3); NEUTROPHILS # (AUTO) 2.8 K/uL (1.8-7.7); NEUTROPHILS % (AUTO) 59.5 % (42.2-75.2); PLATELET COUNT (AUTO) 165 K/uL (140-450); RED BLOOD CELL COUNT(AUTO) 3.93 MIL/uL (4.20-6.10); WHITE BLOOD COUNT (AUTO) 4.7 K/uL (4.8-10.8)
--- NOTE | 2022-06-10 06:27 | NUR ---
PT IS STABLE. NO ACUTE EVENTS THROUGHOUT THE NIGHT. ALL NEEDS MET. NO S/SX OF DISTRESS NOTED. NO COMPLAINS OF PAIN AT THIS TIME. ALL PRECAUTIONS IN PLACE. CALL LIGHT WITHIN REACH. WILL ENDORSE TO AM SHIFT NURSE.
--- NOTE | 2022-06-10 07:07 | NUR ---
RECEIVED REPORT FROM NIGHTSHIFT NURSE ALEXANDRA FOR CONTINUITY OF CARE. PT IS CURRENTLY SLEEPING, A/OX2. BREATHING EVEN, REGULAR, AND UNLABORED WITH OXYMIZER TO 9L. PT IS INCONTINENT OF THE BOWEL AND BLADDER. PT BEDBOUND, ACTIVE RANGE OF MOTION IN UPPER EXTREMITIES. NO SIGNS OF PAIN OR DISTRESS NOTED AT THIS TIME.
[2022-06-10 08:00] VITALS: BP 137/80
[2022-06-10 12:00] VITALS: BP 146/80
[2022-06-10 13:57] LABS: ANION GAP 9.5 (8-16); CARBON DIOXIDE 33.9 mmol/L (21-32); CREATININE 1.3 mg/dL (0.6-1.3); POTASSIUM 3.4 mmol/L (3.5-5.1)
[2022-06-10] MEDS: DEXT 5% / NACL 0.45% 1,000 ML IV SCH (15:20)
[2022-06-10 16:00] VITALS: BP 122/70
[2022-06-10] MEDS ORDERED: POTASSIUM CHLORIDE 20% 40 MEQ/15 ML UDC GT SCH (19:00)
[2022-06-10] MEDS ORDERED: FUROSEMIDE 20 MG/2 ML VIAL IVP SCH (19:00)
--- NOTE | 2022-06-10 19:30 | NUR ---
ENDORSED PT TO NIGHTSHIFT NURSE. PT IN STABLE CONDITION.
[2022-06-10 20:00] VITALS: BP 124/84
[2022-06-10 20:50] LABS: FREE T4 (FREE THYROXINE) 0.2 ng/dL (0.76-1.46); THYROID STIMULATING HORMONE 50.69 uIU/mL (0.34-3.74)
--- NOTE | 2022-06-10 21:08 | NUR ---
THERE IS STAT DOSE OF LASIX 20MGTIV TONIGHT - BUT ON TELE MONITOR PT IS SB HR 50'S , BUT BP IS 124/82 , PT IS ASYMPTOMATIC - REFERRED TO DR. Shannon SANTANA - PER DR Adrianna SANTANA - HOLD THE LASIX - WILL CARRY OUT .
[2022-06-11] VITALS: BP 122/82
[2022-06-11] MEDS: PIPERACILLIN/TAZOBACTAM 3.375 GM in DEXTROSE 5% 50 ML IV SCH ×5 (01:00→23:52)
[2022-06-11 04:00] VITALS: BP 125/81
--- NOTE | 2022-06-11 04:00 | NUR ---
PER RT HE DEC . THE O2 AT 5LPM - PT TOLERATING IT . WILL CONT. TO MONITOR
--- NOTE | 2022-06-11 04:03 | NUR ---
TITRATED TO 5 LPM ON OXYMIZER AT THIS TIME. PT IS IN BED RESTING COMFORTABLY, EQUAL CHEST RISE, NO SIGNS OF RESPIRATORY DISTRESS NOTED AT THIS TIME. RN AWARE WILL CONTINUE TO MONITOR.
--- NOTE | 2022-06-11 06:00 | NUR ---
SB , NO COMPLAIN MADE , - WILL CONT. TO MONITOR .
[2022-06-11 06:18] LABS: ALBUMIN 3.2 g/dL (3.4-5.0); CARBON DIOXIDE 33.6 mmol/L (21-32); CREATININE 1.3 mg/dL (0.6-1.3); POTASSIUM 3.6 mmol/L (3.5-5.1); TOTAL BILIRUBIN 0.8 mg/dL (0.0-1.0)
[2022-06-11 06:20] LABS: EOSINOPHILS # (AUTO) 0.2 K/uL (0-0.4); EOSINOPHILS % (AUTO) 4.7 % (0.0-4.0); HEMOGLOBIN 12.4 g/dL (12.0-18.0); LYMPHOCYTES # (AUTO) 1.2 K/uL (2.0-11.5); LYMPHOCYTES % (AUTO) 26.6 % (20.5-51.1); MEAN CORPUSCULAR HEMOGLOBIN 32 pg (27-31); MEAN CORPUSCULAR HGB CONC 34 g/dL (33-37); MEAN CORPUSCULAR VOLUME 91.9 fL (80-94); MONOCYTES # (AUTO) 0.7 K/uL (0.8-1.0); MONOCYTES % (AUTO) 14.7 % (1.7-9.3); NEUTROPHILS # (AUTO) 2.4 K/uL (1.8-7.7); PLATELET COUNT (AUTO) 225 K/uL (140-450); RED BLOOD CELL COUNT(AUTO) 3.91 MIL/uL (4.20-6.10); RED CELL DISTRIBUTION WIDTH 14.9 % (11.6-13.7); WHITE BLOOD COUNT (AUTO) 4.5 K/uL (4.8-10.8)
--- NOTE | 2022-06-11 07:29 | NUR ---
RECEIVED REPORT FROM NIGHTSHIFT NURSE ANGELICA FOR CONTINUITY OF CARE. PT IS CURRENTLY SLEEPING, A/OX2. BREATHING EVEN, REGULAR, AND UNLABORED WITH OXYMIZER TO 5L. PT IS INCONTINENT OF THE BOWEL AND BLADDER. PT BEDBOUND, ACTIVE RANGE OF MOTION IN UPPER EXTREMITIES. NO SIGNS OF PAIN OR DISTRESS NOTED AT THIS TIME.
--- NOTE | 2022-06-11 07:29 | NUR ---
ENDORSED - PT - STABLE .
[2022-06-11 08:00] VITALS: BP 130/78
[2022-06-11] MEDS ORDERED: NEOSTIGMINE 1:1000 10 MG/10 ML VIAL IV SCH (09:00)
[2022-06-11] MEDS: POTASSIUM CHLORIDE 20% 40 MEQ/15 ML UDC GT SCH (09:11)
--- NOTE | 2022-06-11 09:30 | NUR ---
VISUALLY ASSESSED PT. LARGE BM ON BED, WATERY AND DARK BROWN. BED BATH GIVEN. PT DENIES PAIN AT THIS TIME.
--- NOTE | 2022-06-11 11:30 | NUR ---
PT CURRENTLY SLEEPING. NO SIGNS OF PAIN OR DISTRESS NOTED.
[2022-06-11 12:00] VITALS: BP 116/60
--- NOTE | 2022-06-11 13:30 | NUR ---
PT CURRENTLY SLEEPING. NO SIGNS OF PAIN OR DISTRESS NOTED.
--- NOTE | 2022-06-11 15:18 | NUR ---
06/11/22 RD FOLLOW UP COMPLETED PLEASE REFER TO NUTRITION ASSESSMENT UNDER CARE ACTIVITY FOR ESTIMATED NUTRITIONAL NEEDS. 1. RECOMMEND CARDIAC DIET TOLERATED 2. MONITOR GI SYMPTOMS 3. RD TO FOLLOW-UP 7 DAYS, LOW RISK REVIEWED BY CORINNE HERNANDEZ RD
[2022-06-11] MEDS: DEXT 5% / NACL 0.45% 1,000 ML IV SCH (15:22)
--- NOTE | 2022-06-11 15:30 | NUR ---
PT CURRENTLY SLEEPING. NO SIGNS OF PAIN OR DISTRESS NOTED.
[2022-06-11 16:00] VITALS: BP 128/75
[2022-06-11] MEDS ORDERED: LEVOTHYROXINE 0.1 MG TAB PO SCH (16:36)
--- NOTE | 2022-06-11 17:30 | NUR ---
PT DENIES PAIN AT THIS TIME, NO SIGNS OF PAIN OR DISTRESS NOTED. DR. SANTANA AND DR. HERRERA ROUNDED ON PT.
--- NOTE | 2022-06-11 19:23 | NUR ---
ENDORSED PT TO NIGHTSHIFT NURSE LEA FOR CONTINUITY OF CARE. PT IN STABLE CONDITION.
--- NOTE | 2022-06-11 19:30 | NUR ---
RECEIVED PT IN BED.A,A & O.LUNGS CLEAR.SL PATENT.TELE IS ON AND SHOWING SR.NO C/O PAIN AND/OR SOB NOW.CALL LIGHT IN REACH.WILL CONT.MONITORING. Addendum: 06/11/22 at 2242 by Nahomy Pham RN RECEIVED PT IN BED.........................................................MONITORING.
--- NOTE | 2022-06-11 19:30 | NUR ---
RECEIVED PT IN BED.AWAKE.A&O X2.RESP.UNLABORED W/O2 AT 5 LIT.LUNGS DIMINISHED.CALL LIGHT IN REACH.HR IS SR.IVF INFUSING WELL.NO DISTRESS NOTED NOW.WILL CONT. MONITORING.
[2022-06-11 20:00] VITALS: BP 125/70
[2022-06-12] VITALS: BP 119/64
--- NOTE | 2022-06-12 00:20 | NUR ---
SLEEPING.HAD WATERY BM X 1.HR IS SB.NO S/S OF PAIN AND/OR SOB NOW.
[2022-06-12 04:00] VITALS: BP 116/60
--- NOTE | 2022-06-12 04:15 | NUR ---
slept well.hr is sb.no distress noted.
[2022-06-12] MEDS: PIPERACILLIN/TAZOBACTAM 3.375 GM in DEXTROSE 5% 50 ML IV SCH (06:07)
[2022-06-12] MEDS: LEVOTHYROXINE 0.1 MG TAB PO SCH (06:15)
[2022-06-12 06:48] LABS: BASOPHILS # (AUTO) 0.1 K/uL (0.00-0.22); BASOPHILS % (AUTO) 1.3 % (0.0-2.0); EOSINOPHILS # (AUTO) 0.2 K/uL (0-0.4); EOSINOPHILS % (AUTO) 5.4 % (0.0-4.0); HEMATOCRIT 37.1 % (36-52); HEMOGLOBIN 12.6 g/dL (12.0-18.0); LYMPHOCYTES # (AUTO) 1.2 K/uL (2.0-11.5); LYMPHOCYTES % (AUTO) 28.6 % (20.5-51.1); MEAN CORPUSCULAR HEMOGLOBIN 31 pg (27-31); MEAN CORPUSCULAR HGB CONC 34 g/dL (33-37); MEAN CORPUSCULAR VOLUME 91.9 fL (80-94); MONOCYTES # (AUTO) 0.5 K/uL (0.8-1.0); MONOCYTES % (AUTO) 12.2 % (1.7-9.3); NEUTROPHILS # (AUTO) 2.1 K/uL (1.8-7.7); NEUTROPHILS % (AUTO) 52.5 % (42.2-75.2); PLATELET COUNT (AUTO) 243 K/uL (140-450); RED BLOOD CELL COUNT(AUTO) 4.04 MIL/uL (4.20-6.10); RED CELL DISTRIBUTION WIDTH 14.8 % (11.6-13.7)
[2022-06-12 07:18] LABS: ANION GAP 9.1 (8-16); CARBON DIOXIDE 32.7 mmol/L (21-32); CREATININE 1.1 mg/dL (0.6-1.3); POTASSIUM 3.8 mmol/L (3.5-5.1)
--- NOTE | 2022-06-12 07:27 | NUR ---
IV GOT OUT.TRIED TO REINSERT ANOTHER ONE ,I COULDN'T.REPORT GIVEN TO AM RN.
[2022-06-12 08:00] VITALS: BP 143/71
--- NOTE | 2022-06-12 08:00 | NUR ---
RECEIVED REPORT FROM CREATIVE SERVICES PRODUCER FOR CONTINUITY OF CARE. PATIENT ALERT AWAKE ORIENTED X2, NOT IN ANY DISTRESS NOTED. ON MONITOR SHOWS SR. WITH IV ON LEFT WRIST G 24 DRY AND INTACT. ISOLATION PRECAUTION OBSERVED. BED IN LO9W POSITION. CALL LIGHT WITHIN. NEEDS ATTENDED. WILL CONTINUE TO MONITOR.
[2022-06-12] MEDS: POTASSIUM CHLORIDE 20% 40 MEQ/15 ML UDC GT SCH (09:54)
--- NOTE | 2022-06-12 10:41 | NUR ---
P.T. NOTES P.T. EVAL COMPLETED; REFER TO EVAL FOR DETAILS.
[2022-06-12 12:00] VITALS: BP 136/76
--- NOTE | 2022-06-12 13:00 | NUR ---
SEEN BY6 DR. SANTANA, WITH ORDERS. SEEN BY PT TODAY. WAITING FOR ECHO.
--- NOTE | 2022-06-12 14:00 | NUR ---
ECHO DONE. PATIENT RESTING IN BED, FAMILY CALLED AND TRANFER TO THE PATIENT.
[2022-06-12] MEDS: DEXT 5% / NACL 0.45% 1,000 ML IV SCH (15:20)
[2022-06-12 16:00] VITALS: BP 127/76
--- NOTE | 2022-06-12 18:41 | NUR ---
PATIENT RESTING IN BED. NO ACUTE EVENTS DURING THE SHIFT. WILL ENDORSE TO THE NEXT SHIFT.
--- NOTE | 2022-06-12 19:25 | NUR ---
REPORT GIVEN TO THE NEXT SHIFT FOR CONTINUITY OF CARE. IN STABLE CONDITION.
--- NOTE | 2022-06-12 19:26 | NUR ---
RECEIVED REPORT FROM MORNING SHIFT NURSE. PT IS SITTING ON BED AND EATING HIS DINNER. PT IS AOX2 AND ON 4L OXYMIZER. PT IS ON CARDIAC DIET AND WITH LEFT WRIST GAUGE 24 RUNNING WITH D5 1/2 AT TKO. NO S/S OF RESPIRATORY DISTRESS NOTED AND NO COMPLAIN OF PAIN. ALL SAFETY MEASURES IMPLEMENTED. BED WHEELS ON LOCKED AND BED IN LOW POSITION. CALL LIGHT WITHIN.
[2022-06-12 20:00] VITALS: BP 134/81
--- NOTE | 2022-06-12 21:50 | NUR ---
FIXED PT'S IV AND IV PUMP. CHANGED THE IV PUMP'S PHOTOGRAPHIC COLORIST. ALL SAFETY MEASURES IMPLEMENTED. CALL LIGHT WITHIN REACH, BED IN LOW POSITION AND BED WHEELS LOCKED.
--- NOTE | 2022-06-12 23:30 | NUR ---
PT IS WATCHING TV WHILE LYING ON THE BED. NO COMPLAIN OF PAIN. NO S/S OF RESPIRATORY DISTRESS NOTED. ALL SAFETY MEASURES IMPLEMENTED. CALL LIGHT WITHIN REACH. BED WHEELS LOCKED AND BED IN LOW POSITION.
[2022-06-13] VITALS: BP 142/88
--- NOTE | 2022-06-13 02:00 | NUR ---
PT IS ON SLEEP. CHEST RISE AND FALL SYMMETRICALLY NOTED. NO S/S OF RESPIRATORY DISTRESS NOTED. ALL SAFETY MEASURES IMPLEMENTED. CALL LIGHT WITHIN REACH. BED WHEELS LOCKED AND BED IN LOW POSITION.
[2022-06-13 04:00] VITALS: BP 136/81
--- NOTE | 2022-06-13 04:00 | NUR ---
CHECKED THE PT, STILL ON SLEEP. CHEST RISE AND FALL SYMMETRICALLY NOTED. NO S/S OF RESPIRATORY DISTRESS NOTED SATING AT 98%. ALL SAFETY MEASURES IMPLEMENTED. CALL LIGHT WITHIN REACH. BED WHEELS LOCKED AND BED IN LOW POSITION.
[2022-06-13] MEDS: LEVOTHYROXINE 0.1 MG TAB PO SCH (05:32)
--- NOTE | 2022-06-13 05:32 | NUR ---
SCHEDULED PRESCRIBED MEDICATION WAS GIVEN TO PT PER MD ORDER. PT TOLERATED IT WELL. ALL SAFETY MEASURES IMPLEMENTED. CALL LIGHT WITHIN REACH. BED WHEELS LOCKED AND BED IN LOW POSITION.
--- NOTE | 2022-06-13 07:18 | NUR ---
PT IS STABLE. ENDORSED PT TO MORNING SHIFT NURSE FOR CONTINUITY OF CARE.
[2022-06-13 07:28] LABS: BASOPHILS # (AUTO) 0.1 K/uL (0.00-0.22); BASOPHILS % (AUTO) 1.8 % (0.0-2.0); EOSINOPHILS # (AUTO) 0.2 K/uL (0-0.4); EOSINOPHILS % (AUTO) 4.2 % (0.0-4.0); HEMATOCRIT 38.3 % (36-52); LYMPHOCYTES # (AUTO) 1.3 K/uL (2.0-11.5); MEAN CORPUSCULAR HEMOGLOBIN 31 pg (27-31); MEAN CORPUSCULAR HGB CONC 34 g/dL (33-37); MEAN CORPUSCULAR VOLUME 91.8 fL (80-94); MONOCYTES # (AUTO) 0.4 K/uL (0.8-1.0); MONOCYTES % (AUTO) 7.5 % (1.7-9.3); NEUTROPHILS # (AUTO) 3.1 K/uL (1.8-7.7); NEUTROPHILS % (AUTO) 60.5 % (42.2-75.2); PLATELET COUNT (AUTO) 238 K/uL (140-450); RED BLOOD CELL COUNT(AUTO) 4.17 MIL/uL (4.20-6.10); RED CELL DISTRIBUTION WIDTH 14.6 % (11.6-13.7); WHITE BLOOD COUNT (AUTO) 5.1 K/uL (4.8-10.8)
[2022-06-13 08:00] VITALS: BP 118/79
--- NOTE | 2022-06-13 08:00 | NUR ---
RECEIVED REPORT FROM EQUITY SALES ASSISTANT FOR CONTINUITY OF CARE. PATIENT ALERT AWAKE NOT IN ANY DISTRESS NOTED. DENIES PAIN. INITIAL ASSESSMENT INITIATED. BED IN LOW POSITION. CALL LIGHT WITHIN REACH. NEEDS ATTENDED. WILL CONTINUE TO MONITOR.
[2022-06-13 08:05] LABS: FREE T4 (FREE THYROXINE) 0.22 ng/dL (0.76-1.46); THYROID STIMULATING HORMONE 56.78 uIU/mL (0.34-3.74)
[2022-06-13 08:27] LABS: ANION GAP 11.9 (8-16); CARBON DIOXIDE 30.6 mmol/L (21-32); CREATININE 1.2 mg/dL (0.6-1.3); POTASSIUM 4.5 mmol/L (3.5-5.1)
[2022-06-13] MEDS: POTASSIUM CHLORIDE 20% 40 MEQ/15 ML UDC GT SCH (09:00)
--- NOTE | 2022-06-13 09:30 | NUR ---
SEEN BY DR SANTANA, WITH ORDER TO DOWNGRADE TO MED SURG. WILL CONTINUE TO MONITOR.
[2022-06-13] MEDS: DEXT 5% / NACL 0.45% 1,000 ML IV SCH (15:20)
[2022-06-13 16:00] VITALS: BP 125/74
--- NOTE | 2022-06-13 19:21 | NUR ---
REPORT GIVEN TO THE FLOOR INSTALLATION MECHANIC FOR CONTINUITY OF CARE. PATIENT IN STABLE CONDITION.
--- NOTE | 2022-06-13 19:22 | NUR ---
RECEIVED REPORT FROM MORNING SHIFT NURSE. PT IS SITTING ON BED AND EATING HIS DINNER. PT IS AOX2 AND ON 4L OXYMIZER. PT IS ON CARDIAC DIET AND WITH LEFT THUMB GAUGE 24 RUNNING WITH D5 1/2 AT TKO. NO S/S OF RESPIRATORY DISTRESS NOTED AND NO COMPLAIN OF PAIN. ALL SAFETY MEASURES IMPLEMENTED. BED WHEELS ON LOCKED AND BED IN LOW POSITION. CALL LIGHT WITHIN.
--- NOTE | 2022-06-13 22:00 | NUR ---
PT IS WATCHING TV. NO COMPLAIN OF PAIN. NO S/S OF RESPIRATORY DISTRESS NOTED. ALL SAFETY MEASURES IMPLEMENTED. CALL LIGHT WITHIN REACH. BED WHEELS LOCKED AND BED IN LOW POSITION.
[2022-06-14] VITALS: BP 123/72
--- NOTE | 2022-06-14 | NUR ---
PT ASKED TO CLEANED AND CHANGE DIAPER, GOWN AND LINENS. PT WAS CLEANED AND CHANGED. ALL SAFETY MEASURES IMPLEMENTED. BED WHEELS ON LOCKED. BED IN LOW POSITION AND CALL LIGHT WITHIN REACH.
--- NOTE | 2022-06-14 02:00 | NUR ---
PT IS SLEEPING. CHEST RISE AND FALL SYMMETRICALLY NOTED. NO S/S OF RESPIRATORY DISTRESS NOTED. ALL SAFETY MEASURES IMPLEMENTED. BED WHEELS ON LOCKED. BED IN LOW POSITION AND CALL LIGHT WITHIN REACH.
--- NOTE | 2022-06-14 03:30 | NUR ---
IV PULLED OUT. INSERTED NEW IV IN LEFT FOREARM GAUGE 24. IV IS NOW PATENT AND INTACT. ALL SAFETY MEASURES IMPLEMENTED. BED WHEELS ON LOCKED. BED IN LOW POSITION AND CALL LIGHT WITHIN REACH.
[2022-06-14] MEDS: LEVOTHYROXINE 0.075 MG TAB PO SCH (05:32)
[2022-06-14 05:44] LABS: BASOPHILS # (AUTO) 0.1 K/uL (0.00-0.22); BASOPHILS % (AUTO) 1.1 % (0.0-2.0); EOSINOPHILS # (AUTO) 0.2 K/uL (0-0.4); EOSINOPHILS % (AUTO) 3.5 % (0.0-4.0); HEMATOCRIT 37.7 % (36-52); HEMOGLOBIN 12.9 g/dL (12.0-18.0); LYMPHOCYTES # (AUTO) 1.4 K/uL (2.0-11.5); MEAN CORPUSCULAR HEMOGLOBIN 31 pg (27-31); MEAN CORPUSCULAR HGB CONC 34 g/dL (33-37); MEAN CORPUSCULAR VOLUME 91.2 fL (80-94); MONOCYTES # (AUTO) 0.3 K/uL (0.8-1.0); MONOCYTES % (AUTO) 5.4 % (1.7-9.3); NEUTROPHILS # (AUTO) 3.7 K/uL (1.8-7.7); PLATELET COUNT (AUTO) 269 K/uL (140-450); RED BLOOD CELL COUNT(AUTO) 4.14 MIL/uL (4.20-6.10); RED CELL DISTRIBUTION WIDTH 14.7 % (11.6-13.7); WHITE BLOOD COUNT (AUTO) 5.6 K/uL (4.8-10.8)
[2022-06-14 07:05] LABS: ALBUMIN 3.3 g/dL (3.4-5.0); ANION GAP 11.7 (8-16); CARBON DIOXIDE 31.9 mmol/L (21-32); CREATININE 1.2 mg/dL (0.6-1.3); POTASSIUM 4.6 mmol/L (3.5-5.1); TOTAL BILIRUBIN 0.5 mg/dL (0.0-1.0)
--- NOTE | 2022-06-14 07:34 | NUR ---
PT IS STABLE. ENDORSED PT TO MORNING SHIFT NURSE FOR CONTINUITY OF CARE.
--- NOTE | 2022-06-14 07:36 | NUR ---
RECEIVED REPORT FROM CALENDAR CONTROL CLERK BLOOD BANK NURSE FOR CONTINUITY OF CARE. PT IS SITTING ON BED AND EATING HIS DINNER. PT IS AOX3 AND ON 4L OXYMIZER. PT IS ON CARDIAC DIET AND WITH LEFT THUMB GAUGE 24 RUNNING WITH D5 1/2 AT TKO. NO S/S OF RESPIRATORY DISTRESS NOTED AND NO COMPLAIN OF PAIN. PLAN OF CARE DISCUSSED. ALL SAFETY MEASURES IMPLEMENTED. BED WHEELS ON LOCKED AND BED IN LOW POSITION. CALL LIGHT WITHIN. WILL CONTINUE TO MONITOR.
[2022-06-14 08:00] VITALS: BP 129/81
[2022-06-14] MEDS: POTASSIUM CHLORIDE 20% 40 MEQ/15 ML UDC GT SCH (08:46)
--- NOTE | 2022-06-14 09:00 | NUR ---
ALL SCHEDULED MEDS GIVEN. PT IS STABLE. NO DISTRESS NOTED .WILL CONTINUE TO MONITOR.
--- NOTE | 2022-06-14 11:35 | NUR ---
CHECKED ON PT. PT IS STABLE. NO DISTRESS NOTED. WILL CONTINUE TO MONITOR.
--- NOTE | 2022-06-14 12:35 | NUR ---
PHYSICAL THERAPY CO-SIGN The Physical Therapy Progress Notes documented by Patient Biller have been reviewed. Reviewed/Co-Signed by: Sherry Guido Documentation Done by: KEIRY BANDA PTA Addendum: 06/14/22 at 1235 by Sherry Guido PT Amended: Links added.
--- NOTE | 2022-06-14 13:55 | NUR ---
CHECKED ON PT. PT IS STABLE. NO DISTRESS NOTED. WILL CONTINUE TO MONITOR.
[2022-06-14] MEDS: DEXT 5% / NACL 0.45% 1,000 ML IV SCH (15:32)
[2022-06-14 16:00] VITALS: BP 141/92
--- NOTE | 2022-06-14 19:40 | NUR ---
ENDORSED TO BREAKFAST ATTENDANT NURSE FOR CONTINUITY OF CARE. PT IS STABLE.
--- NOTE | 2022-06-14 19:41 | NUR ---
RECEIVED ENDORSEMENT FROM DAY SHIFT NURSE FOR [id number] OF PT CARE.
--- NOTE | 2022-06-14 22:00 | NUR ---
ASSIST PT WITH PERSONAL HYGIENE, PT IS INCONTINENT BOWEL AND BLADDER. NO SKIN BREAKDOWN.
[2022-06-15 05:49] LABS: BASOPHILS # (AUTO) 0.1 K/uL (0.00-0.22); BASOPHILS % (AUTO) 1.1 % (0.0-2.0); EOSINOPHILS # (AUTO) 0.2 K/uL (0-0.4); EOSINOPHILS % (AUTO) 3.7 % (0.0-4.0); HEMATOCRIT 37.1 % (36-52); HEMOGLOBIN 12.6 g/dL (12.0-18.0); LYMPHOCYTES # (AUTO) 1.7 K/uL (2.0-11.5); LYMPHOCYTES % (AUTO) 26.5 % (20.5-51.1); MEAN CORPUSCULAR HEMOGLOBIN 31 pg (27-31); MEAN CORPUSCULAR HGB CONC 34 g/dL (33-37); MEAN CORPUSCULAR VOLUME 90.8 fL (80-94); MONOCYTES # (AUTO) 0.3 K/uL (0.8-1.0); MONOCYTES % (AUTO) 5.3 % (1.7-9.3); NEUTROPHILS # (AUTO) 3.9 K/uL (1.8-7.7); NEUTROPHILS % (AUTO) 63.4 % (42.2-75.2); PLATELET COUNT (AUTO) 293 K/uL (140-450); RED BLOOD CELL COUNT(AUTO) 4.08 MIL/uL (4.20-6.10); RED CELL DISTRIBUTION WIDTH 14.7 % (11.6-13.7); WHITE BLOOD COUNT (AUTO) 6.2 K/uL (4.8-10.8)
[2022-06-15] MEDS: LEVOTHYROXINE 0.075 MG TAB PO SCH (06:42)
[2022-06-15 06:57] LABS: ANION GAP 12.7 (8-16); CARBON DIOXIDE 30.9 mmol/L (21-32); CREATININE 1.1 mg/dL (0.6-1.3); POTASSIUM 4.6 mmol/L (3.5-5.1)
[2022-06-15 07:27] LABS: FREE T4 (FREE THYROXINE) 0.31 ng/dL (0.76-1.46); THYROID STIMULATING HORMONE 63.91 uIU/mL (0.34-3.74)
--- NOTE | 2022-06-15 07:35 | NUR ---
PT IS ON STABLE CONDITION. DENIES OF PAIN. SALINE LOCK INTACT AND PATENT. ALL SAFETY MEASURES IN PLACE. CALL LIGHT WITHIN THE REACH. ENDORSED TO DAY SHIFT NURSE FOR CONTINUITY OF CARE.
--- NOTE | 2022-06-15 07:36 | NUR ---
RECEIVED REPORT FROM STEAM SHOVEL RUNNER NURSE FOR CONTINUITY OF CARE. PT IS SITTING ON BED AND EATING HIS DINNER. PT IS AOX3 AND ON 4L OXYMIZER. SKIN IS WARM, DRY,AND INTACT. IV INFUSING FLUIDS ORDERED. NO S/S OF RESPIRATORY DISTRESS NOTED AND NO COMPLAIN OF PAIN. PLAN OF CARE DISCUSSED. ALL SAFETY MEASURES IMPLEMENTED. BED WHEELS ON LOCKED AND BED IN LOW POSITION. CALL LIGHT WITHIN. WILL CONTINUE TO MONITOR
[2022-06-15 08:00] VITALS: BP 143/75
[2022-06-15] MEDS ORDERED: LEVOTHYROXINE SODIUM 100 MCG VIAL IV SCH (08:30)
--- NOTE | 2022-06-15 10:00 | NUR ---
ALL SCHEDULED MEDS GIVEN. PT IS STABLE. NO DISTRESS NOTED. WILL CONTINUE TO MONITOR.
--- NOTE | 2022-06-15 12:01 | NUR ---
PHYSICAL THERAPY CO-SIGN The Physical Therapy Progress Notes documented by Surfboard Designer have been reviewed. Reviewed/Co-Signed by: Sherry Guido Documentation Done by: KEIRY BANDA PTA Addendum: 06/15/22 at 1201 by Sherry Guido PT Amended: Links added.
--- NOTE | 2022-06-15 12:30 | NUR ---
DISCHARGE PLAN SW CALL [facility] AT AND SPOKE TO LEV WEATHERS (CHARGE NURSE) AT THE FACILITY TO DISCUSS PATIENT'S DISCHARGE AND TRANSPORTATION SET UP BY FACILITY. PER LEV AGREE TO SET UP PATIENT'S DOLPHIN RESEARCHER TIME TODAY AT ABOUT 15:00 BY FACILITY STAFF MEMBER LILIAM. PER LEV [facility]/RN CAN CALL HER FOR REPORT AT HER NUMBER. SW AGREED TO INFORM AND REQUEST [facility]/RN LAZARA TO GIVE LEV A CALL FOR REPORT. SW ENDED THE CALL AND ENDORSE INFORMATION WITH PATIENT RN LAZARA. SW/CM WILL FOLLOW UP NEEDED.
[2022-06-15 13:08] VITALS: BP 135/91
--- NOTE | 2022-06-15 13:12 | NUR ---
CONTACTED [facility] AND SPOKE TO LEV. NOTIFIED THEM THAT PATIENT WILL BE DISCHARGE TO THEIR FACILITY AND THEY ARE AWARE. TRANSPORTATION WILL BE HERE AT 1500.
--- NOTE | 2022-06-15 15:14 | NUR ---
ENDORSED DISCHARGE INSTRUCTIONS TO PATIENT. PT VERBALIZED UNDERSTANDING AND SIGNED DISCHARGE FORMS.
[2022-06-15] MEDS: DEXT 5% / NACL 0.45% 1,000 ML IV SCH (15:20)
--- NOTE | 2022-06-15 16:17 | NUR ---
PATIENT DISCHARGED OFF THE UNIT. PT PICKED UP BY [facility] TRANSPORTATION. PT WAS STABLE PRIOR TO DISCHARGE.
== END 2022-06-15 16:15 | disposition home or self-care (01) | DRG 720 ==
LOC: MED 20:15 → MTU 22:13 → MMU 06-05 00:13 → MTU 06-11 19:48 → MMU 06-11 20:15
PROVIDERS: ADMIT Preventive Medicine Preventive Medicine/Occupational Environmental Medicine; ATTEND Preventive Medicine Preventive Medicine/Occupational Environmental Medicine
DX: A41.9 Sepsis, unspecified organism (principal); J96.01 Acute respiratory failure with hypoxia; J69.0 Pneumonitis due to inhalation of food and vomit; E88.09 Other disorders of plasma-protein metabolism, not elsewhere classified; E87.1 Hypo-osmolality and hyponatremia; K56.0 Paralytic ileus; K21.9 Gastro-esophageal reflux disease without esophagitis; I10 Essential (primary) hypertension; G40.909 Epilepsy, unspecified, not intractable, without status epilepticus; F79 Unspecified intellectual disabilities; E78.5 Hyperlipidemia, unspecified; E03.9 Hypothyroidism, unspecified; E87.6 Hypokalemia; M19.90 Unspecified osteoarthritis, unspecified site; R00.1 Bradycardia, unspecified; Z20.822 Contact with and (suspected) exposure to COVID-19
CPT/HCPCS: 36415; 36600; 71045; 74018; 74250; 80048; 80053; 80202; 81001; 82803; 83605; 84439; 84443; 85025; 85651; 86140; 87040; 87070; 87081; 87086; 93005; 94640; 96361; 96365; 96367; 97110; 97112; 97116; 97530; 99285; J1940; J2185; J2270; J2543; J2710; J2765; J3370; J7060; Q0092

== ENCOUNTER 2022-09-21 11:41 | Inpatient (IN) | payer MEDICAID, OTHER ==
[2022-09-20] MEDS: LACTULOSE 20 GM/30 ML UDC PO SCH (23:00)
[~2022-09-21] VITALS: Ht 185.4 cm; Wt 107.5 kg
--- NOTE | 2022-09-21 11:42 | NUR ---
NI ALS TO ER BED 3
--- NOTE | 2022-09-21 11:48 | NUR ---
Dr. Navarro evaluating pt at bedside
--- NOTE | 2022-09-21 11:50 | NUR ---
61 y/o M BIBA from assisted living for SOB x 30 mins. Per EMS, found by staff baseline SpO2 66%; placed on 3L NC @ 88%. 95% on 4L via NC by EMS. Pt states gen. abd pain. Baseline A&Ox1 to name/year/. Patient c/o generalized abdominal pain since this morning. Unable to assess pain scale. Abd distended. Pt placed onto vault attendant. 4L via NC SpO2 96%. Bed locked in lowest position, side rails x 2 for pt safety. PMH: HTN, hypothyroidism, CHF, asthma Meds: unable to obtain NKDA
[2022-09-21 11:52] VITALS: BP 127/93
[2022-09-21] MEDS ORDERED: NACL 0.9% 1,000 ML IV ONE (11:55)
--- NOTE | 2022-09-21 12:08 | NUR ---
Lab at bedside
--- NOTE | 2022-09-21 12:15 | NUR ---
Swab collected, walked to lab and handed to CPT.
[2022-09-21 12:30] LABS: EOSINOPHILS # (AUTO) 0.1 K/uL (0-0.4); HEMATOCRIT 38.6 % (36-52); HEMOGLOBIN 12.9 g/dL (12.0-18.0); LYMPHOCYTES # (AUTO) 1.5 K/uL (2.0-11.5); LYMPHOCYTES % (AUTO) 32.2 % (20.5-51.1); MEAN CORPUSCULAR HEMOGLOBIN 31 pg (27-31); MEAN CORPUSCULAR HGB CONC 33 g/dL (33-37); MEAN CORPUSCULAR VOLUME 92.8 fL (80-94); MONOCYTES # (AUTO) 0.4 K/uL (0.8-1.0); MONOCYTES % (AUTO) 9.5 % (1.7-9.3); NEUTROPHILS # (AUTO) 2.5 K/uL (1.8-7.7); NEUTROPHILS % (AUTO) 54.3 % (42.2-75.2); PLATELET COUNT (AUTO) 156 K/uL (140-450); RED BLOOD CELL COUNT(AUTO) 4.16 MIL/uL (4.20-6.10); RED CELL DISTRIBUTION WIDTH 15.4 % (11.6-13.7); WHITE BLOOD COUNT (AUTO) 4.6 K/uL (4.8-10.8)
--- NOTE | 2022-09-21 12:43 | NUR ---
Olman (caregiver) at bedside
--- NOTE | 2022-09-21 12:43 | NUR ---
RAD at bedside
[2022-09-21 12:48] LABS: APPEARANCE,URINE CLEAR (CLEAR); BILIRUBIN,URINE NEGATIVE (NEGATIVE); BLOOD, URINE NEGATIVE (NEGATIVE); COLOR,URINE YELLOW (YELLOW); LEUKOCYTE ESTERASE ,URINE NEGATIVE (NEGATIVE); NITRITE, URINE NEGATIVE (NEGATIVE); UGLUCOSE NEGATIVE (NEGATIVE)
[2022-09-21 12:53] LABS: ALBUMIN 3.7 g/dL (3.4-5.0); ANION GAP 8.9 (8-16); ASPARTATE AMINOTRANSFERASE 36 U/L (15-37); CARBON DIOXIDE 36.5 mmol/L (21-32); CHLORIDE 102 mmol/L (98-107); GFR ARICAN-AMERICAN 98 mL/min (>90); GLUCOSE 81 mg/dL (74-106); LIPASE 157 U/L (73-393); POTASSIUM 4.4 mmol/L (3.5-5.1); SODIUM SERUM 143 mmol/L (136-145); TOTAL BILIRUBIN 0.4 mg/dL (0.0-1.0); UREA NITROGEN, BLOOD 21 mg/dL (7-18)
[2022-09-21] MEDS ORDERED: VALP-22 GT/PO (12:55)
[2022-09-21] MEDS ORDERED: SERT-515 PO (12:55)
[2022-09-21] MEDS ORDERED: POTA10TA70 PO (12:55)
[2022-09-21] MEDS ORDERED: FURO-572 PO (12:55)
[2022-09-21] MEDS ORDERED: OMEP40EC24 PO (12:55)
[2022-09-21] MEDS ORDERED: AMLO10TA PO (12:55)
[2022-09-21] MEDS ORDERED: MONT10TA35 PO (12:55)
[2022-09-21] MEDS ORDERED: LIP80 PO (12:55)
[2022-09-21] MEDS ORDERED: TOP25 PO (12:55)
[2022-09-21] MEDS ORDERED: LACT-103 PO (12:55)
[2022-09-21] MEDS ORDERED: ASPI-1822 PO (12:55)
[2022-09-21] MEDS ORDERED: LURA60TA PO (12:55)
[2022-09-21] MEDS ORDERED: ISOS30TA24 PO (12:55)
[2022-09-21] MEDS ORDERED: SYN.05 PO (12:55)
[2022-09-21] MEDS ORDERED: METO-485 PO (12:55)
[2022-09-21] MEDS ORDERED: ALBU1.25 IH (12:55)
[2022-09-21] MEDS ORDERED: AZITHROMYCIN 500 MG in DEXTROSE 5% 250 ML IV ONE (13:05)
[2022-09-21] MEDS ORDERED: HYDROcodone/APAP 7.5/325 MG 1 TAB PO PRN (13:20)
[2022-09-21] MEDS ORDERED: amLODIPine 5 MG TAB PO SCH (13:20)
[2022-09-21] MEDS ORDERED: ACETAMINOPHEN 325 MG TAB PO PRN (13:20)
[2022-09-21] MEDS ORDERED: ONDANSETRON 4 MG/2 ML VIAL IVP PRN (13:20)
[2022-09-21] MEDS ORDERED: cefTRIAXone 1,000 MG VIAL ONE (13:50)
--- NOTE | 2022-09-21 14:04 | NUR ---
Pt transported to CT via rney.
[2022-09-21 14:10] LABS: CHOL/HDL RATIO 2.6 (1-4.5); FREE T4 (FREE THYROXINE) 0.19 ng/dL (0.76-1.46); MAGNESIUM 2.3 mg/dL (1.8-2.4); PHOSPHORUS 3.2 mg/dL (2.5-4.9); THYROID STIMULATING HORMONE 63.93 uIU/mL (0.34-3.74)
--- NOTE | 2022-09-21 14:14 | NUR ---
Pt returned from CT and placed back onto residential monitor. IVPB continued. Caregiver remains at bedside. Patient denies pain; SpO2 96% on 4L NC. Bed locked in lowest position, side rails x 2. Seizure precautions in place.
[2022-09-21] MEDS: NACL 0.9% 1,000 ML IV SCH (14:20)
[2022-09-21] MEDS ORDERED: AZITHROMYCIN 500 MG INJ VIAL IV ONE (14:24)
--- NOTE | 2022-09-21 14:36 | NUR ---
Adelaide Joseph (sister) - [phone] called requesting update. Verbal consent received from patient to provide status updates.
--- NOTE | 2022-09-21 14:40 | NUR ---
Phone call transferred to mobile phone; pt speaking with sister at this time.
--- NOTE | 2022-09-21 14:52 | NUR ---
Per pharmacist, facility does not carry Latuda (home med).
--- NOTE | 2022-09-21 14:54 | NUR ---
Spoke with Flor, nurse and advised regarding Latuda. Flor states she will send someone to drop medication off to ER.
[2022-09-21 15:19] LABS: PROTHROMBIN TIME 11.1 secs (10.8-13.4)
[2022-09-21 16:12] LABS: ANION GAP 9.9 (8-16); CARBON DIOXIDE 33.9 mmol/L (21-32); POTASSIUM 3.8 mmol/L (3.5-5.1)
--- NOTE | 2022-09-21 18:50 | NUR ---
Patient will be admitted to care of Dr. Hoover. Admited to Telemetry. Will go to room 105B. Belongings list completed. Report to KWAME Rubin.
[2022-09-21 19:30] VITALS: BP 130/72
--- NOTE | 2022-09-21 19:30 | NUR ---
RECEIVED PT AAOX2 TO 3 , HX OF INTELLECTUAL DISABILITY , ON O2 AT 4LPM/NC - O2 SAT 95 5 - HOOK ON O2 SAT MONITOR . IV SITES INTACT AND PATENT , ON TELE MONITOR - SB - BP WNL . SKIN INTACT , CAN ABLE TO USE HIS URINAL BY HIMSELF , I FOUND HIS URINAL AT BEDSIDE TABLE W/ 250 CC URINE IN YELLOW IN COLOR , DENIES PAIN AT THIS TIME , ALTHOUGH HE SAID HIS ABDL . PAIN IS ON AND OFF , BY FACIAL EXPRESSION FLACC 0 , PLAN OF CARE DISCUSSED BUT NEEDS REINFORCEMENT DUE TO HIS MENTAL STATUS , PUT PT ON FALL PREVENTION PROTOCOL , URINAL / CALL LIGHT WITHIN REACH , SKIN INTACT , HE REQUESTING SOME THING TO EAT HE SAID HE IS HUNGRY , NO DIET ORDERED YET - WILL REFER TO DR. SERNA .
[2022-09-21] MEDS ORDERED: NON-FORMULARY ITEM (Lactulose 30 ML) PO SCH (21:00)
[2022-09-21] MEDS ORDERED: LACTULOSE 20 GM/30 ML UDC PO SCH (21:00)
--- NOTE | 2022-09-21 21:45 | NUR ---
FED PT W/ SAP , NO ASPIRATION NOTED - INFORMED DR. SERNA , THEN DR. SERNA ORDER [facility] . SOFT DIET W/ SAP - WILL CARRY OUT . Addendum: 09/22/22 at 0503 by Radha Hathaway RN [id number] - I SENT MSG TO DR. SERNA PT HAS HX OF CHF AND CLARIFYING TO ARIE M IF THE IVF STILL TO BE RUN AT 50 CC/HR , PT ALREADY GOT 1L BOLUS NSS FROM ER , NO FURTHER ORDER FROM DR. SERNA .
[2022-09-21] MEDS ORDERED: CRUSHER, PILL MC ONE (22:49)
[2022-09-21] MEDS: DOCUSATE SODIUM 100 MG GELCAP PO SCH (23:00)
[2022-09-21] MEDS: METOCLOPRAMIDE 10 MG TAB PO SCH (23:26)
[2022-09-22] VITALS: BP 130/90
--- NOTE | 2022-09-22 | NUR ---
SB IN TELE MONITOR , VISITS PT , NO S/SX OF ACUTE DISTRESS NOTED AT THIS TIME , O2 SAT 96 % , RESTING ON BED , DENIES ANY PAIN . WILLCONT. TO MONITOR .
--- NOTE | 2022-09-22 02:00 | NUR ---
rounds , no s/sx of acute distress noted , call light within reach .
[2022-09-22 04:00] VITALS: BP 150/73
--- NOTE | 2022-09-22 04:11 | NUR ---
SLEEPING , AROUSAL BY SOUNDS AND TOUCH , NO S/SX OF ACUTE DISTRESS NOTED , O2 SAT 95 5 , ON TELE MONITOR .
[2022-09-22] MEDS: LEVOTHYROXINE 0.075 MG TAB PO SCH (06:42)
[2022-09-22] MEDS: LATUDA 60 MG PO SCH (06:42)
--- NOTE | 2022-09-22 06:55 | NUR ---
PER PHARMACIST KALA - MAY GIVE SCHED REGLAN /TAB NOW EVEN 7HRS APART .
[2022-09-22] MEDS: METOCLOPRAMIDE 10 MG TAB PO SCH ×3 (06:57→16:30)
--- NOTE | 2022-09-22 07:30 | NUR ---
endorsed pt for cont. of care .
[2022-09-22 08:00] VITALS: BP 148/87
[2022-09-22 08:27] LABS: ANION GAP 12.4 (8-16); CARBON DIOXIDE 33.8 mmol/L (21-32); CREATININE 0.8 mg/dL (0.6-1.3); POTASSIUM 4.2 mmol/L (3.5-5.1)
[2022-09-22 08:32] LABS: BASOPHILS # (AUTO) 0.1 K/uL (0.00-0.22); BASOPHILS % (AUTO) 1.2 % (0.0-2.0); EOSINOPHILS # (AUTO) 0.1 K/uL (0-0.4); EOSINOPHILS % (AUTO) 2.7 % (0.0-4.0); HEMATOCRIT 42.9 % (36-52); HEMOGLOBIN 14.4 g/dL (12.0-18.0); LYMPHOCYTES # (AUTO) 1.1 K/uL (2.0-11.5); LYMPHOCYTES % (AUTO) 23.3 % (20.5-51.1); MEAN CORPUSCULAR HEMOGLOBIN 31 pg (27-31); MEAN CORPUSCULAR HGB CONC 34 g/dL (33-37); MEAN CORPUSCULAR VOLUME 92.4 fL (80-94); MONOCYTES # (AUTO) 0.4 K/uL (0.8-1.0); MONOCYTES % (AUTO) 8.2 % (1.7-9.3); NEUTROPHILS # (AUTO) 2.9 K/uL (1.8-7.7); NEUTROPHILS % (AUTO) 64.6 % (42.2-75.2); PLATELET COUNT (AUTO) 153 K/uL (140-450); RED BLOOD CELL COUNT(AUTO) 4.64 MIL/uL (4.20-6.10); RED CELL DISTRIBUTION WIDTH 15.7 % (11.6-13.7); WHITE BLOOD COUNT (AUTO) 4.5 K/uL (4.8-10.8)
[2022-09-22 08:38] LABS: MAGNESIUM 2.2 mg/dL (1.8-2.4); PHOSPHORUS 3.1 mg/dL (2.5-4.9)
[2022-09-22] MEDS: MONTELUKAST SODIUM 10 MG TAB PO SCH (09:00)
[2022-09-22] MEDS: ISOSORBIDE DINITRATE 10 MG TAB PO SCH (09:00)
[2022-09-22] MEDS: FUROSEMIDE 20 MG TAB PO SCH (09:00)
[2022-09-22] MEDS ORDERED: LURASIDONE HCL PO SCH (09:00)
[2022-09-22] MEDS: TOPIRAMATE 25 MG TAB PO SCH (09:00)
[2022-09-22] MEDS: COMMUNICATION ORDER MC SCH (09:00)
[2022-09-22] MEDS: PANTOPRAZOLE 40 MG INJ VIAL IVP SCH (09:00)
[2022-09-22] MEDS: ATORVASTATIN 80 MG TAB PO SCH (09:00)
[2022-09-22] MEDS ORDERED: ISOSORBIDE DINITRATE 30 MG PO SCH (09:00)
[2022-09-22] MEDS: LACTULOSE 20 GM/30 ML UDC PO SCH ×2 (09:00→21:17)
[2022-09-22] MEDS ORDERED: NON-FORMULARY ITEM (Omeprazole* (Prilosec*) 1 CAP) PO SCH (09:00)
[2022-09-22] MEDS: SERTRALINE 50 MG TAB PO SCH (09:00)
[2022-09-22] MEDS ORDERED: LEVOTHYROXINE 0.025 MG TAB PO SCH (09:00)
[2022-09-22] MEDS: VALPROIC ACID 250 MG/5 ML UDC GT SCH (09:00)
[2022-09-22] MEDS: DOCUSATE SODIUM 100 MG GELCAP PO SCH ×2 (09:00→21:17)
[2022-09-22] MEDS: AZITHROMYCIN 250 MG TAB PO SCH (09:00)
[2022-09-22] MEDS: ASPIRIN 81 MG TAB.CHEW PO SCH (09:00)
[2022-09-22] MEDS: NACL 0.9% 1,000 ML IV SCH (09:20)
[2022-09-22 12:00] VITALS: BP 118/78
--- NOTE | 2022-09-22 12:00 | NUR ---
PATIENT O2 SAT DROPPED TO 89% ON 4L NC. RT WAS CALLED AND PLACE PATIENT ON FACE MASK AT 6LPM TOLERATING WELL. O2 SAT ON 94-96% ON 6LPM VIA FACE MASK. PATIENT DENIES SOB AT THIS TIME. DENIES ANY PAIN OR DISCOMFORT. WILL CONTINUE TO MONITOR.
--- NOTE | 2022-09-22 13:21 | NUR ---
DC PLANNING OUTREACHED TO PT EMERGENCY CONTACT THIAGO TAINA ([facility] MANAGER), , TO GATHER COLLATERAL INFORMATION, HOWEVER, THIAGO WAS DRIVING AND IS REQUESTING FOR CALL BACK AFTER 4PM. SW TO FOLLOW
--- NOTE | 2022-09-22 13:28 | NUR ---
PATIENT HAS BEEN SCREENED AND CATEGORIZED MODERATE NUTRITION RISK. PATIENT WILL BE SEEN WITHIN 3-5 DAYS OF ADMISSION. 09/24/2211/27/[address]
[2022-09-22 16:00] VITALS: BP 119/88
--- NOTE | 2022-09-22 19:05 | NUR ---
received report from am shift. to take over care at this time for night court magistrate. patient lying comfortably in bed. will continue to monitor and assess.
[2022-09-22] MEDS ORDERED: LACTULOSE 20 GM/30 ML UDC ONE (21:12)
[2022-09-23 01:40] VITALS: BP 120/15
[2022-09-23] MEDS: NACL 0.9% 1,000 ML IV SCH (05:20)
[2022-09-23] MEDS: LATUDA 60 MG PO SCH (07:00)
[2022-09-23 07:30] LABS: BASOPHILS % (AUTO) 1.1 % (0.0-2.0); EOSINOPHILS # (AUTO) 0.1 K/uL (0-0.4); EOSINOPHILS % (AUTO) 2.9 % (0.0-4.0); HEMATOCRIT 39.4 % (36-52); HEMOGLOBIN 13.4 g/dL (12.0-18.0); LYMPHOCYTES # (AUTO) 1.2 K/uL (2.0-11.5); LYMPHOCYTES % (AUTO) 31.1 % (20.5-51.1); MEAN CORPUSCULAR HEMOGLOBIN 31 pg (27-31); MEAN CORPUSCULAR HGB CONC 34 g/dL (33-37); MEAN CORPUSCULAR VOLUME 91.4 fL (80-94); MONOCYTES # (AUTO) 0.3 K/uL (0.8-1.0); MONOCYTES % (AUTO) 7.3 % (1.7-9.3); NEUTROPHILS # (AUTO) 2.3 K/uL (1.8-7.7); NEUTROPHILS % (AUTO) 57.6 % (42.2-75.2); PLATELET COUNT (AUTO) 152 K/uL (140-450); RED BLOOD CELL COUNT(AUTO) 4.32 MIL/uL (4.20-6.10); RED CELL DISTRIBUTION WIDTH 15.4 % (11.6-13.7); WHITE BLOOD COUNT (AUTO) 3.9 K/uL (4.8-10.8)
[2022-09-23] MEDS: METOCLOPRAMIDE 10 MG TAB PO SCH ×3 (07:30→16:30)
[2022-09-23] MEDS: LEVOTHYROXINE 0.075 MG TAB PO SCH (07:30)
[2022-09-23 07:54] LABS: CARBON DIOXIDE 32.4 mmol/L (21-32); POTASSIUM 4.4 mmol/L (3.5-5.1)
[2022-09-23 08:00] VITALS: BP 138/92
[2022-09-23 08:04] LABS: MAGNESIUM 2.2 mg/dL (1.8-2.4); PHOSPHORUS 3.5 mg/dL (2.5-4.9)
[2022-09-23] MEDS: SERTRALINE 50 MG TAB PO SCH (08:44)
[2022-09-23] MEDS: ISOSORBIDE DINITRATE 10 MG TAB PO SCH (08:44)
[2022-09-23] MEDS: TOPIRAMATE 25 MG TAB PO SCH (08:45)
[2022-09-23] MEDS: ATORVASTATIN 80 MG TAB PO SCH (08:45)
[2022-09-23] MEDS: ASPIRIN 81 MG TAB.CHEW PO SCH (08:45)
[2022-09-23] MEDS: AZITHROMYCIN 250 MG TAB PO SCH (08:45)
[2022-09-23] MEDS: MONTELUKAST SODIUM 10 MG TAB PO SCH (08:45)
[2022-09-23] MEDS: FUROSEMIDE 20 MG TAB PO SCH (08:45)
[2022-09-23] MEDS: DOCUSATE SODIUM 100 MG GELCAP PO SCH ×2 (08:45→21:37)
[2022-09-23] MEDS: COMMUNICATION ORDER MC SCH (08:46)
[2022-09-23] MEDS: VALPROIC ACID 250 MG/5 ML UDC GT SCH (08:46)
[2022-09-23] MEDS: PANTOPRAZOLE 40 MG INJ VIAL IVP SCH (08:46)
[2022-09-23] MEDS: LACTULOSE 20 GM/30 ML UDC PO SCH ×2 (08:46→21:37)
[2022-09-23 12:00] VITALS: BP 104/76
[2022-09-23 16:00] VITALS: BP 120/78
[2022-09-23 21:39] VITALS: BP 145/98
--- NOTE | 2022-09-23 22:54 | NUR ---
PATIENT AWAKE AND ALERT. WATCHING TV. NO COMPLAINTS OF PAIN, NO APPARENT DISTRESS. WILL CONTINUE TO MONITOR.
--- NOTE | 2022-09-24 00:04 | NUR ---
TOOK PATIENTS VITAL SIGNS, STABLE. PATIENT HAD A BOWEL MOVEMENT AND VOIDED ON THE BED PADS. CLEANED PATIENT, PROVIDED DONNA CARE. PATIENT IS RESTING NOW.
[2022-09-24 00:07] VITALS: BP 148/96
[2022-09-24] MEDS: NACL 0.9% 1,000 ML IV SCH (01:20)
--- NOTE | 2022-09-24 03:37 | NUR ---
RECEIVED PATIENT FROM KWAME ESPINOZA FOR CONTINUITY OF CARE. PT IS ASLEEP. NO S/SX OF PAIN NOR DISCOMFORT. NO ACUTE RESPIRATORY DISTRESS. SAFETY PRECAUTION IN PLACE, CALL LIGHT IN REACH.
[2022-09-24 04:00] VITALS: BP 158/76
--- NOTE | 2022-09-24 04:00 | NUR ---
VITAL SIGNS TAKEN AND DOCUMENTED. DENIES PAIN. CALL LIGHT IN REACH.
--- NOTE | 2022-09-24 05:50 | NUR ---
INCONTINENT OF URINE, AM CARE RENDERED. MADE COMFORTABLE IN BED. DENIES PAIN. CALL LIGHT IN REACH.
[2022-09-24] MEDS: METOCLOPRAMIDE 10 MG TAB PO SCH ×2 (06:31→12:22)
[2022-09-24] MEDS: LEVOTHYROXINE 0.075 MG TAB PO SCH (06:32)
[2022-09-24] MEDS: LATUDA 60 MG PO SCH (06:32)
--- NOTE | 2022-09-24 06:34 | NUR ---
PATIENT IS ASLEEP. NO DISTRESS NOTED. ALL NEEDS ATTENDED TO. SAFETY PRECAUTIONS MAINTAINED DURING THE SHIFT, CALL LIGHT REMAINED WITHIN REACH.
[2022-09-24 07:38] LABS: EOSINOPHILS # (AUTO) 0.1 K/uL (0-0.4); EOSINOPHILS % (AUTO) 2.9 % (0.0-4.0); HEMATOCRIT 40.8 % (36-52); HEMOGLOBIN 13.8 g/dL (12.0-18.0); LYMPHOCYTES # (AUTO) 1.3 K/uL (2.0-11.5); LYMPHOCYTES % (AUTO) 28.1 % (20.5-51.1); MEAN CORPUSCULAR HEMOGLOBIN 31 pg (27-31); MEAN CORPUSCULAR HGB CONC 34 g/dL (33-37); MONOCYTES # (AUTO) 0.4 K/uL (0.8-1.0); MONOCYTES % (AUTO) 8.6 % (1.7-9.3); NEUTROPHILS # (AUTO) 2.8 K/uL (1.8-7.7); NEUTROPHILS % (AUTO) 59.4 % (42.2-75.2); PLATELET COUNT (AUTO) 156 K/uL (140-450); RED BLOOD CELL COUNT(AUTO) 4.43 MIL/uL (4.20-6.10); RED CELL DISTRIBUTION WIDTH 15.3 % (11.6-13.7); WHITE BLOOD COUNT (AUTO) 4.8 K/uL (4.8-10.8)
[2022-09-24 07:44] LABS: ANION GAP 7.2 (8-16); CREATININE 0.9 mg/dL (0.6-1.3); POTASSIUM 4.2 mmol/L (3.5-5.1)
[2022-09-24 08:00] VITALS: BP 156/93
[2022-09-24] MEDS: VALPROIC ACID 250 MG/5 ML UDC GT SCH (08:34)
[2022-09-24] MEDS: ASPIRIN 81 MG TAB.CHEW PO SCH (08:34)
[2022-09-24] MEDS: AZITHROMYCIN 250 MG TAB PO SCH (08:34)
[2022-09-24] MEDS: MONTELUKAST SODIUM 10 MG TAB PO SCH (08:34)
[2022-09-24] MEDS: ISOSORBIDE DINITRATE 10 MG TAB PO SCH (08:34)
[2022-09-24] MEDS: ATORVASTATIN 80 MG TAB PO SCH (08:35)
[2022-09-24] MEDS: FUROSEMIDE 20 MG TAB PO SCH (08:35)
[2022-09-24] MEDS: DOCUSATE SODIUM 100 MG GELCAP PO SCH (08:35)
[2022-09-24] MEDS: SERTRALINE 50 MG TAB PO SCH (08:35)
[2022-09-24] MEDS: TOPIRAMATE 25 MG TAB PO SCH (08:35)
[2022-09-24] MEDS: COMMUNICATION ORDER MC SCH (08:42)
[2022-09-24] MEDS: PANTOPRAZOLE 40 MG INJ VIAL IVP SCH (08:42)
[2022-09-24] MEDS: LACTULOSE 20 GM/30 ML UDC PO SCH (08:43)
[2022-09-24 08:55] LABS: MAGNESIUM 2.2 mg/dL (1.8-2.4); PHOSPHORUS 3.6 mg/dL (2.5-4.9)
[2022-09-24] MEDS ORDERED: LEVO-481 PO (09:27)
--- NOTE | 2022-09-24 14:45 | NUR ---
PATIENT DISCHARGE TO [facility]. ACCOMPANIED BY ARLEY (SENIOR LIVING STAFF). DISCHARGE INSTRUCTIONS GIVE. PATIENT STABLE UPON DISCHARGE.
== END 2022-09-24 15:11 | disposition home or self-care (01) | DRG 720 ==
LOC: MED 11:41 → MTU 13:28
DX: A41.9 Sepsis, unspecified organism (principal); J96.01 Acute respiratory failure with hypoxia; I31.39 Other pericardial effusion (noninflammatory); J18.9 Pneumonia, unspecified organism; I27.20 Pulmonary hypertension, unspecified; I11.0 Hypertensive heart disease with heart failure; I50.9 Heart failure, unspecified; J98.11 Atelectasis; R56.9 Unspecified convulsions; Z20.822 Contact with and (suspected) exposure to COVID-19; E03.9 Hypothyroidism, unspecified; F79 Unspecified intellectual disabilities; K21.9 Gastro-esophageal reflux disease without esophagitis; E78.5 Hyperlipidemia, unspecified; J45.909 Unspecified asthma, uncomplicated; N28.1 Cyst of kidney, acquired; I25.10 Atherosclerotic heart disease of native coronary artery without angina pectoris; F39 Unspecified mood [affective] disorder; K59.00 Constipation, unspecified
CPT/HCPCS: 36415; 36600; 71045; 80048; 80053; 81003; 82140; 82150; 82803; 83036; 83605; 83690; 83735; 83880; 84100; 84439; 84443; 84484; 85025; 85610; 85730; 87040; 87081; 93005; 96361; 96365; 96367; 99285; C9113; J0456; J0696; J7060; J8597; Q0092; Q9967

== ENCOUNTER 2022-12-24 16:55 | Emergency (ER) | payer MEDICAID ==
[~2022-12-24] VITALS: Ht 182.9 cm; Wt 99.8 kg
[2022-12-24 16:55] VITALS: BP 137/89
[~2022-12-24 16:55] MED LIST changes: +ALBU1.25 IH; +AMLO10TA PO; +ASPI-1822 PO; +FURO-572 PO; +ISOS30TA24 PO; +LACT-103 PO; +LEVO-481 PO; +LIP80 PO; +LURA60TA PO; +METO-485 PO; +MONT10TA35 PO; +OMEP40EC24 PO; +POTA10TA70 PO; +SERT-515 PO; +SYN.05 PO; +TOP25 PO; +VALP-22 GT/PO
--- NOTE | 2022-12-24 17:02 | NUR ---
Patient assisted by stand/pivot from EARL dobbins onto bed 10. classroom monitor in place. Remains on 4L NC.
--- NOTE | 2022-12-24 17:25 | NUR ---
Dr. Keane evaluating pt at bedside
[2022-12-24] MEDS ORDERED: ACETAMINOPHEN EXTRA STRENGTH 500 MG TAB PO ONE (17:35)
--- NOTE | 2022-12-24 17:38 | NUR ---
Lab at bedside
--- NOTE | 2022-12-24 17:42 | NUR ---
Urinal at bedside. Pt encouraged to void.
[2022-12-24 17:53] LABS: BASOPHILS % (AUTO) 1.1 % (0.0-2.0); EOSINOPHILS # (AUTO) 0.1 K/uL (0-0.4); HEMATOCRIT 35.3 % (36-52); HEMOGLOBIN 11.8 g/dL (12.0-18.0); LYMPHOCYTES # (AUTO) 1.3 K/uL (2.0-11.5); LYMPHOCYTES % (AUTO) 37.5 % (20.5-51.1); MEAN CORPUSCULAR HEMOGLOBIN 31 pg (27-31); MEAN CORPUSCULAR HGB CONC 33 g/dL (33-37); MEAN CORPUSCULAR VOLUME 92.6 fL (80-94); MONOCYTES # (AUTO) 0.3 K/uL (0.8-1.0); MONOCYTES % (AUTO) 8.3 % (1.7-9.3); NEUTROPHILS # (AUTO) 1.8 K/uL (1.8-7.7); NEUTROPHILS % (AUTO) 50.1 % (42.2-75.2); PLATELET COUNT (AUTO) 161 K/uL (140-450); RED BLOOD CELL COUNT(AUTO) 3.81 MIL/uL (4.20-6.10); RED CELL DISTRIBUTION WIDTH 15.7 % (11.6-13.7); WHITE BLOOD COUNT (AUTO) 3.5 K/uL (4.8-10.8)
[2022-12-24 18:06] LABS: APPEARANCE,URINE CLEAR (CLEAR); BILIRUBIN,URINE NEGATIVE (NEGATIVE); BLOOD, URINE TRACE-I (NEGATIVE); COLOR,URINE YELLOW (YELLOW); LEUKOCYTE ESTERASE ,URINE NEGATIVE (NEGATIVE); NITRITE, URINE NEGATIVE (NEGATIVE); UGLUCOSE NEGATIVE (NEGATIVE)
[2022-12-24 18:07] LABS: RBC,URINE 0-5 /HPF (0-5); WBC,URINE NONE SEEN /HPF (0-5)
[2022-12-24 18:17] LABS: ALBUMIN 4.2 g/dL (3.4-5.0); ANION GAP 6.4 (8-16); CARBON DIOXIDE 35.9 mmol/L (21-32); POTASSIUM 4.3 mmol/L (3.5-5.1); TOTAL BILIRUBIN 0.4 mg/dL (0.0-1.0)
--- NOTE | 2022-12-24 18:57 | NUR ---
PATIENT'S CAREGIVER, THIAGO, WANTS TO BE CALLED WHEN PATIENT NEEDS TO BE PICKED UP. PHONE NUMBER [phone].
[2022-12-24] MEDS ORDERED: ACET-10509 PO (18:58)
--- NOTE | 2022-12-24 19:31 | NUR ---
REC'D PT IN BED 10, AWAITING TRANSPORT FOLLOWING DISCHARGE.
[2022-12-24 19:55] VITALS: BP 120/87
--- NOTE | 2022-12-24 19:55 | NUR ---
Patient discharged with v/s stable. Written and verbal after care instructions given and explained. Patient alert, oriented and verbalized understanding of instructions. Wheel Chair Assisted with to car. All questions addressed prior to discharge. ID band removed. Patient advised to follow up with PMD. Rx of TYLENOL given. Patient educated on indication of medication including possible reaction and side effects. Opportunity to ask questions provided and answered.
== END 2022-12-24 19:55 | disposition home or self-care (01) ==
LOC: MED 16:55
DX: M25.512 Pain in left shoulder (principal); R07.89 Other chest pain; D64.9 Anemia, unspecified; I11.0 Hypertensive heart disease with heart failure; I50.9 Heart failure, unspecified; J45.909 Unspecified asthma, uncomplicated; K21.9 Gastro-esophageal reflux disease without esophagitis; E03.9 Hypothyroidism, unspecified; Z79.899 Other long term (current) drug therapy; Z79.2 Long term (current) use of antibiotics; Z79.1 Long term (current) use of non-steroidal anti-inflammatories (NSAID); Z79.82 Long term (current) use of aspirin
CPT/HCPCS: 36415; 71045; 73030; 80053; 81001; 83880; 84484; 85025; 93005; 99285; Q0092

== ENCOUNTER 2023-06-25 12:47 | Inpatient (IN) | payer MEDICAID ==
[~2023-06-25] VITALS: Ht 188 cm; Wt 126.6 kg
[~2023-06-25 12:47] MED LIST changes: +ACET-10509 PO; +MONT-72 PO; -MONT10TA35 PO
[2023-06-25 12:50] VITALS: BP 133/71; PULSE 64; RESP 20; TEMP 97.9; O2SAT 94
[2023-06-25 13:43] LABS: BASOPHILS % (AUTO) 0.8 % (0.0-2.0); EOSINOPHILS % (AUTO) 0.4 % (0.0-4.0); HEMATOCRIT 34.4 % (36-52); HEMOGLOBIN 11.5 g/dL (12.0-18.0); LYMPHOCYTES # (AUTO) 0.6 K/uL (2.0-11.5); LYMPHOCYTES % (AUTO) 17.7 % (20.5-51.1); MEAN CORPUSCULAR HEMOGLOBIN 30 pg (27-31); MEAN CORPUSCULAR HGB CONC 33 g/dL (33-37); MEAN CORPUSCULAR VOLUME 91.1 fL (80-94); MONOCYTES # (AUTO) 0.5 K/uL (0.8-1.0); MONOCYTES % (AUTO) 15.8 % (1.7-9.3); NEUTROPHILS # (AUTO) 2.1 K/uL (1.8-7.7); NEUTROPHILS % (AUTO) 65.3 % (42.2-75.2); PLATELET COUNT (AUTO) 144 K/uL (140-450); RED BLOOD CELL COUNT(AUTO) 3.77 MIL/uL (4.20-6.10); RED CELL DISTRIBUTION WIDTH 16.2 % (11.6-13.7); WHITE BLOOD COUNT (AUTO) 3.2 K/uL (4.8-10.8)
[2023-06-25] MEDS ORDERED: cefTRIAXone 2,000 MG in DEXTROSE 5% 100 ML IV ONE (13:50)
[2023-06-25] MEDS ORDERED: cefTRIAXone 2,000 MG VIAL ONE (13:58)
[2023-06-25 14:59] LABS: FLU A ANTIGEN negative (NEGATIVE); FLU B ANTIGEN NEGATIVE (NEGATIVE)
[2023-06-25] MEDS ORDERED: AZITHROMYCIN 500 MG in DEXTROSE 5% 250 ML IV ONE (15:05)
[2023-06-25 15:07] LABS: ALBUMIN 3.4 g/dL (3.4-5.0); CALCIUM 9.1 mg/dL (8.5-10.1); CARBON DIOXIDE 33.7 mmol/L (21-32); CREATININE 1.2 mg/dL (0.6-1.3)
[2023-06-25] MEDS ORDERED: LORazepam 2 MG/ML VIAL IVP PRN (15:20)
[2023-06-25] MEDS ORDERED: DOCUSATE SODIUM 100 MG GELCAP PO PRN (15:20)
[2023-06-25] MEDS ORDERED: ONDANSETRON 4 MG/2 ML VIAL IVP PRN (15:20)
[2023-06-25] MEDS ORDERED: ACETAMINOPHEN 325 MG TAB PO PRN (15:20)
[2023-06-25] MEDS ORDERED: ZOLPIDEM 10 MG TAB PO PRN (15:20)
[2023-06-25] MEDS ORDERED: MAG SULF 2000 MG/WATER PREMIX 50 ML IV PRN (15:20)
[2023-06-25] MEDS ORDERED: MORPHINE SULFATE 2 MG/ML SYR IVP PRN (15:20)
[2023-06-25] MEDS ORDERED: POTASSIUM CHLORIDE 10 MEQ TABER PO PRN (15:20)
[2023-06-25] MEDS ORDERED: AZITHROMYCIN 500 MG INJ VIAL IV ONE (15:33)
[2023-06-25 16:00] LABS: TOTAL BILIRUBIN 0.5 mg/dL (0.0-1.0); TOTAL PROTEIN, SERUM 7.4 g/dL (6.4-8.2)
[2023-06-25] MEDS ORDERED: POTA10TA70 PO (16:08)
[2023-06-25] MEDS ORDERED: LORA10TA19 PO (16:08)
[2023-06-25] MEDS ORDERED: BUDE1AER IH (16:08)
[2023-06-25] MEDS ORDERED: DIVA500T1 PO (16:08)
[2023-06-25] MEDS ORDERED: LIP80 PO (16:08)
[2023-06-25] MEDS ORDERED: FISH100053 PO (16:08)
[2023-06-25] MEDS ORDERED: ISOS20TA13 PO (16:08)
[2023-06-25] MEDS ORDERED: SYN.05 PO (16:08)
[2023-06-25] MEDS ORDERED: TOPI25TA41 PO (16:08)
[2023-06-25] MEDS ORDERED: DOCU-299 PO (16:08)
[2023-06-25] MEDS ORDERED: AMLO10TA PO (16:08)
[2023-06-25] MEDS ORDERED: LACT-85 PO (16:08)
[2023-06-25] MEDS ORDERED: OMEP40EC23 PO (16:08)
[2023-06-25] MEDS ORDERED: ASPI81EC19 PO (16:08)
[2023-06-25] MEDS ORDERED: FURO-572 PO (16:08)
[2023-06-25] MEDS ORDERED: LURA60TA PO (16:08)
[2023-06-25] MEDS ORDERED: MONT-72 PO (16:08)
[2023-06-25] MEDS ORDERED: TRAZ-343 PO (16:08)
[2023-06-25 16:27] VITALS: BP 131/92; PULSE 62; PULSE 67; PULSE 68; RESP 18; RESP 20; TEMP 98.7; O2SAT 96; O2SAT 99
[2023-06-25 16:29] LABS: LACTIC ACID 2.6 mmol/L (0.4-2.0)
[2023-06-25 17:36] VITALS: O2SAT 95
[2023-06-25 17:51] VITALS: RESP 20; O2SAT 99
[2023-06-25 19:12] VITALS: O2SAT 94
[2023-06-25 19:18] LABS: POTASSIUM 4.3 mmol/L (3.5-5.1)
[2023-06-25 19:19] LABS: ANION GAP 14.6 (8-16)
[2023-06-25 20:00] VITALS: BP_SYST 129; BP_SYST 142; BP_DIAS 64; BP_DIAS 86; PULSE 62; PULSE 65; RESP 18; TEMP 98; O2SAT 91
[2023-06-26] VITALS (8 sets, daily range): BP systolic 125–148; BP diastolic 86–96; PULSE 60–74; RESP 16–18; TEMP 97.8–98.9; O2SAT 90–94
[2023-06-26] MEDS ORDERED: remdesivir COMMUNICATION ORDER 1 EA MISC MC PRN (04:05)
[2023-06-26 05:41] LABS: BASOPHILS % (AUTO) 0.6 % (0.0-2.0); EOSINOPHILS % (AUTO) 0.2 % (0.0-4.0); HEMATOCRIT 36.8 % (36-52); HEMOGLOBIN 12.4 g/dL (12.0-18.0); LYMPHOCYTES # (AUTO) 0.7 K/uL (2.0-11.5); LYMPHOCYTES % (AUTO) 18.6 % (20.5-51.1); MEAN CORPUSCULAR HEMOGLOBIN 31 pg (27-31); MEAN CORPUSCULAR HGB CONC 34 g/dL (33-37); MEAN CORPUSCULAR VOLUME 90.2 fL (80-94); MONOCYTES # (AUTO) 0.5 K/uL (0.8-1.0); MONOCYTES % (AUTO) 13.4 % (1.7-9.3); NEUTROPHILS # (AUTO) 2.6 K/uL (1.8-7.7); NEUTROPHILS % (AUTO) 67.2 % (42.2-75.2); PLATELET COUNT (AUTO) 143 K/uL (140-450); RED BLOOD CELL COUNT(AUTO) 4.08 MIL/uL (4.20-6.10); RED CELL DISTRIBUTION WIDTH 16.3 % (11.6-13.7); WHITE BLOOD COUNT (AUTO) 3.8 K/uL (4.8-10.8)
[2023-06-26 05:48] LABS: ANION GAP 8.6 (8-16); CALCIUM 8.8 mg/dL (8.5-10.1); CARBON DIOXIDE 33.2 mmol/L (21-32); CREATININE 0.9 mg/dL (0.6-1.3); POTASSIUM 3.8 mmol/L (3.5-5.1)
[2023-06-26] MEDS: LEVOTHYROXINE 0.025 MG TAB PO SCH (06:29)
[2023-06-26] MEDS: VALPROIC ACID 250 MG/5 ML UDC PO SCH (09:07)
[2023-06-26] MEDS: LACTULOSE 20 GM/30 ML UDC PO SCH (09:07)
[2023-06-26] MEDS: TOPIRAMATE 25 MG TAB PO SCH (09:08)
[2023-06-26] MEDS: ATORVASTATIN 80 MG TAB PO SCH (09:08)
[2023-06-26] MEDS: ASPIRIN 81 MG TAB.CHEW PO SCH (09:08)
[2023-06-26] MEDS: MONTELUKAST SODIUM 10 MG TAB PO SCH (09:08)
[2023-06-26] MEDS: SERTRALINE 50 MG TAB PO SCH (09:08)
[2023-06-26] MEDS: FUROSEMIDE 20 MG TAB PO SCH (09:09)
[2023-06-26] MEDS: FAMOTIDINE 20 MG TAB PO SCH (09:09)
[2023-06-26] MEDS: DEXAMETHASONE 4 MG/ML VIAL IVP SCH (10:14)
[2023-06-26] MEDS: AZITHROMYCIN 500 MG in DEXTROSE 5% 250 ML IV SCH (11:31)
[2023-06-26] MEDS ORDERED: remdesivir CLINICAL MONITORING 1 EA MISC MC PRN (12:00)
[2023-06-26] MEDS ORDERED: REMDESIVIR. 200 MG in NACL 0.9% 100 ML IV SCH (12:00)
[2023-06-26] MEDS: ALBUTEROL 0.083% 2.5 MG/3 ML NEBU INH PRN (19:12)
[2023-06-27] VITALS (9 sets, daily range): BP systolic 125–145; BP diastolic 78–100; PULSE 57–94; RESP 16–20; TEMP 97.6–98.7; O2SAT 88–97
[2023-06-27] MEDS: LEVOTHYROXINE 0.025 MG TAB PO SCH (06:19)
[2023-06-27 06:44] LABS: BASOPHILS % (AUTO) 0.6 % (0.0-2.0); EOSINOPHILS % (AUTO) 0.1 % (0.0-4.0); HEMATOCRIT 37.8 % (36-52); HEMOGLOBIN 12.7 g/dL (12.0-18.0); LYMPHOCYTES # (AUTO) 1.3 K/uL (2.0-11.5); LYMPHOCYTES % (AUTO) 31.7 % (20.5-51.1); MEAN CORPUSCULAR HEMOGLOBIN 30 pg (27-31); MEAN CORPUSCULAR HGB CONC 34 g/dL (33-37); MEAN CORPUSCULAR VOLUME 89.3 fL (80-94); MONOCYTES # (AUTO) 0.5 K/uL (0.8-1.0); MONOCYTES % (AUTO) 10.9 % (1.7-9.3); NEUTROPHILS # (AUTO) 2.4 K/uL (1.8-7.7); NEUTROPHILS % (AUTO) 56.7 % (42.2-75.2); PLATELET COUNT (AUTO) 155 K/uL (140-450); RED BLOOD CELL COUNT(AUTO) 4.23 MIL/uL (4.20-6.10); RED CELL DISTRIBUTION WIDTH 15.8 % (11.6-13.7); WHITE BLOOD COUNT (AUTO) 4.2 K/uL (4.8-10.8)
[2023-06-27 07:29] LABS: ANION GAP 9.3 (8-16); CALCIUM 8.3 mg/dL (8.5-10.1); CARBON DIOXIDE 32.5 mmol/L (21-32); CREATININE 0.9 mg/dL (0.6-1.3); POTASSIUM 3.8 mmol/L (3.5-5.1)
[2023-06-27 07:37] LABS: ALBUMIN 3.2 g/dL (3.4-5.0); BILIRUBIN,DIRECT 0.1 mg/dL (0.0-0.3); TOTAL BILIRUBIN 0.4 mg/dL (0.0-1.0); TOTAL PROTEIN, SERUM 7.3 g/dL (6.4-8.2)
[2023-06-27] MEDS: VALPROIC ACID 250 MG/5 ML UDC PO SCH (08:36)
[2023-06-27] MEDS: LACTULOSE 20 GM/30 ML UDC PO SCH (08:38)
[2023-06-27] MEDS: ATORVASTATIN 80 MG TAB PO SCH (08:40)
[2023-06-27] MEDS: TOPIRAMATE 25 MG TAB PO SCH (08:41)
[2023-06-27] MEDS: ASPIRIN 81 MG TAB.CHEW PO SCH (08:41)
[2023-06-27] MEDS: FAMOTIDINE 20 MG TAB PO SCH (08:41)
[2023-06-27] MEDS: MONTELUKAST SODIUM 10 MG TAB PO SCH (08:41)
[2023-06-27] MEDS: SERTRALINE 50 MG TAB PO SCH (08:42)
[2023-06-27] MEDS: FUROSEMIDE 20 MG TAB PO SCH (08:42)
[2023-06-27] MEDS: DEXAMETHASONE 4 MG/ML VIAL IVP SCH (09:07)
[2023-06-27] MEDS: AZITHROMYCIN 500 MG in DEXTROSE 5% 250 ML IV SCH (09:08)
[2023-06-27] MEDS: REMDESIVIR. 100 MG in NACL 0.9% 100 ML IV SCH (12:25)
[2023-06-27] MEDS: ALBUTEROL 0.083% 2.5 MG/3 ML NEBU INH PRN (19:21)
[2023-06-28] VITALS (9 sets, daily range): BP systolic 15–159; BP diastolic 76–93; PULSE 48–70; RESP 18–21; TEMP 96.9–98.2; O2SAT 92–94
[2023-06-28] MEDS: LEVOTHYROXINE 0.025 MG TAB PO SCH (05:55)
[2023-06-28 06:51] LABS: BASOPHILS % (AUTO) 0.4 % (0.0-2.0); EOSINOPHILS % (AUTO) 0.3 % (0.0-4.0); HEMATOCRIT 37.7 % (36-52); HEMOGLOBIN 12.8 g/dL (12.0-18.0); LYMPHOCYTES # (AUTO) 1.5 K/uL (2.0-11.5); MEAN CORPUSCULAR HEMOGLOBIN 30 pg (27-31); MEAN CORPUSCULAR HGB CONC 34 g/dL (33-37); MEAN CORPUSCULAR VOLUME 89.2 fL (80-94); MONOCYTES # (AUTO) 0.4 K/uL (0.8-1.0); MONOCYTES % (AUTO) 9.5 % (1.7-9.3); NEUTROPHILS # (AUTO) 2.1 K/uL (1.8-7.7); NEUTROPHILS % (AUTO) 51.8 % (42.2-75.2); PLATELET COUNT (AUTO) 163 K/uL (140-450); RED BLOOD CELL COUNT(AUTO) 4.22 MIL/uL (4.20-6.10); RED CELL DISTRIBUTION WIDTH 15.8 % (11.6-13.7)
[2023-06-28 06:56] LABS: ANION GAP 7.4 (8-16); CALCIUM 8.6 mg/dL (8.5-10.1); CARBON DIOXIDE 34.3 mmol/L (21-32); POTASSIUM 3.7 mmol/L (3.5-5.1)
[2023-06-28 07:02] LABS: ALBUMIN 3.3 g/dL (3.4-5.0); BILIRUBIN,DIRECT 0.1 mg/dL (0.0-0.3); TOTAL BILIRUBIN 0.5 mg/dL (0.0-1.0); TOTAL PROTEIN, SERUM 7.4 g/dL (6.4-8.2)
[2023-06-28] MEDS: DEXAMETHASONE 4 MG/ML VIAL IVP SCH (09:14)
[2023-06-28] MEDS: ASPIRIN 81 MG TAB.CHEW PO SCH (09:23)
[2023-06-28] MEDS: TOPIRAMATE 25 MG TAB PO SCH (09:23)
[2023-06-28] MEDS: ATORVASTATIN 80 MG TAB PO SCH (09:23)
[2023-06-28] MEDS: FAMOTIDINE 20 MG TAB PO SCH (09:23)
[2023-06-28] MEDS: FUROSEMIDE 20 MG TAB PO SCH (09:24)
[2023-06-28] MEDS: VALPROIC ACID 250 MG/5 ML UDC PO SCH (09:24)
[2023-06-28] MEDS: MONTELUKAST SODIUM 10 MG TAB PO SCH (09:24)
[2023-06-28] MEDS: SERTRALINE 50 MG TAB PO SCH (09:24)
[2023-06-28] MEDS: LACTULOSE 20 GM/30 ML UDC PO SCH (09:24)
[2023-06-28] MEDS: AZITHROMYCIN 500 MG in DEXTROSE 5% 250 ML IV SCH (10:33)
[2023-06-28] MEDS: REMDESIVIR. 100 MG in NACL 0.9% 100 ML IV SCH (11:57)
[2023-06-29] VITALS (10 sets, daily range): BP systolic 135–158; BP diastolic 79–95; PULSE 48–138; RESP 16–20; TEMP 97.2–98.1; O2SAT 90–96
[2023-06-29] MEDS: LEVOTHYROXINE 0.025 MG TAB PO SCH (05:52)
[2023-06-29 07:18] LABS: BASOPHILS % (AUTO) 0.5 % (0.0-2.0); HEMATOCRIT 39.3 % (36-52); HEMOGLOBIN 13.2 g/dL (12.0-18.0); LYMPHOCYTES # (AUTO) 1.6 K/uL (2.0-11.5); LYMPHOCYTES % (AUTO) 34.5 % (20.5-51.1); MEAN CORPUSCULAR HEMOGLOBIN 30 pg (27-31); MEAN CORPUSCULAR HGB CONC 34 g/dL (33-37); MEAN CORPUSCULAR VOLUME 89.2 fL (80-94); MONOCYTES # (AUTO) 0.4 K/uL (0.8-1.0); MONOCYTES % (AUTO) 9.4 % (1.7-9.3); NEUTROPHILS # (AUTO) 2.5 K/uL (1.8-7.7); NEUTROPHILS % (AUTO) 54.6 % (42.2-75.2); PLATELET COUNT (AUTO) 176 K/uL (140-450); RED CELL DISTRIBUTION WIDTH 15.7 % (11.6-13.7); WHITE BLOOD COUNT (AUTO) 4.6 K/uL (4.8-10.8)
[2023-06-29 07:30] LABS: ANION GAP 7.8 (8-16); CALCIUM 8.7 mg/dL (8.5-10.1); CARBON DIOXIDE 33.7 mmol/L (21-32); POTASSIUM 3.5 mmol/L (3.5-5.1)
[2023-06-29 07:40] LABS: ALBUMIN 3.4 g/dL (3.4-5.0); BILIRUBIN,DIRECT 0.1 mg/dL (0.0-0.3); TOTAL BILIRUBIN 0.6 mg/dL (0.0-1.0); TOTAL PROTEIN, SERUM 7.7 g/dL (6.4-8.2)
[2023-06-29] MEDS: TOPIRAMATE 25 MG TAB PO SCH (08:45)
[2023-06-29] MEDS: SERTRALINE 50 MG TAB PO SCH (08:45)
[2023-06-29] MEDS: FAMOTIDINE 20 MG TAB PO SCH (08:45)
[2023-06-29] MEDS: ATORVASTATIN 80 MG TAB PO SCH (08:46)
[2023-06-29] MEDS: ASPIRIN 81 MG TAB.CHEW PO SCH (08:46)
[2023-06-29] MEDS: MONTELUKAST SODIUM 10 MG TAB PO SCH (08:46)
[2023-06-29] MEDS: FUROSEMIDE 20 MG TAB PO SCH (08:46)
[2023-06-29] MEDS: DEXAMETHASONE 4 MG/ML VIAL IVP SCH (08:46)
[2023-06-29] MEDS: VALPROIC ACID 250 MG/5 ML UDC PO SCH (08:48)
[2023-06-29] MEDS: LACTULOSE 20 GM/30 ML UDC PO SCH (08:48)
[2023-06-29] MEDS: AZITHROMYCIN 500 MG in DEXTROSE 5% 250 ML IV SCH (09:02)
[2023-06-29] MEDS: REMDESIVIR. 100 MG in NACL 0.9% 100 ML IV SCH (13:06)
[2023-06-29] MEDS: ALBUTEROL 0.083% 2.5 MG/3 ML NEBU INH PRN (19:44)
[2023-06-30] VITALS (7 sets, daily range): BP systolic 122–153; BP diastolic 76–94; PULSE 48–69; RESP 18–20; TEMP 97–98.6; O2SAT 92–96
[2023-06-30 06:40] LABS: BASOPHILS % (AUTO) 0.4 % (0.0-2.0); EOSINOPHILS # (AUTO) 0.1 K/uL (0-0.4); EOSINOPHILS % (AUTO) 1.6 % (0.0-4.0); HEMATOCRIT 37.9 % (36-52); LYMPHOCYTES # (AUTO) 1.5 K/uL (2.0-11.5); LYMPHOCYTES % (AUTO) 33.4 % (20.5-51.1); MEAN CORPUSCULAR HEMOGLOBIN 31 pg (27-31); MEAN CORPUSCULAR HGB CONC 34 g/dL (33-37); MEAN CORPUSCULAR VOLUME 89.2 fL (80-94); MONOCYTES # (AUTO) 0.5 K/uL (0.8-1.0); MONOCYTES % (AUTO) 10.3 % (1.7-9.3); NEUTROPHILS # (AUTO) 2.4 K/uL (1.8-7.7); NEUTROPHILS % (AUTO) 54.3 % (42.2-75.2); PLATELET COUNT (AUTO) 168 K/uL (140-450); RED BLOOD CELL COUNT(AUTO) 4.25 MIL/uL (4.20-6.10); RED CELL DISTRIBUTION WIDTH 15.9 % (11.6-13.7); WHITE BLOOD COUNT (AUTO) 4.4 K/uL (4.8-10.8)
[2023-06-30 06:45] LABS: ANION GAP 8.2 (8-16); CALCIUM 8.6 mg/dL (8.5-10.1); CARBON DIOXIDE 33.4 mmol/L (21-32); POTASSIUM 3.6 mmol/L (3.5-5.1)
[2023-06-30] MEDS: LEVOTHYROXINE 0.025 MG TAB PO SCH (07:01)
[2023-06-30 07:02] LABS: ALBUMIN 3.3 g/dL (3.4-5.0); BILIRUBIN,DIRECT 0.1 mg/dL (0.0-0.3); TOTAL BILIRUBIN 0.5 mg/dL (0.0-1.0); TOTAL PROTEIN, SERUM 7.4 g/dL (6.4-8.2)
[2023-06-30] MEDS ORDERED: ALBU0.0912 INH (08:18)
[2023-06-30] MEDS ORDERED: APIX2.5 PO (08:18)
[2023-06-30] MEDS: AZITHROMYCIN 500 MG in DEXTROSE 5% 250 ML IV SCH (09:39)
[2023-06-30] MEDS: LACTULOSE 20 GM/30 ML UDC PO SCH (09:40)
[2023-06-30] MEDS: DEXAMETHASONE 4 MG/ML VIAL IVP SCH (09:40)
[2023-06-30] MEDS: SERTRALINE 50 MG TAB PO SCH (09:41)
[2023-06-30] MEDS: ASPIRIN 81 MG TAB.CHEW PO SCH (09:41)
[2023-06-30] MEDS: VALPROIC ACID 250 MG/5 ML UDC PO SCH (09:41)
[2023-06-30] MEDS: FUROSEMIDE 20 MG TAB PO SCH (09:41)
[2023-06-30] MEDS: TOPIRAMATE 25 MG TAB PO SCH (09:41)
[2023-06-30] MEDS: FAMOTIDINE 20 MG TAB PO SCH (09:42)
[2023-06-30] MEDS: ATORVASTATIN 80 MG TAB PO SCH (09:42)
[2023-06-30] MEDS: MONTELUKAST SODIUM 10 MG TAB PO SCH (09:42)
[2023-06-30] MEDS: REMDESIVIR. 100 MG in NACL 0.9% 100 ML IV SCH (13:15)
== END 2023-06-30 17:40 | DRG 720 ==
LOC: MED 12:47 → MTU 15:15
PROVIDERS: ADMIT Family Medicine; ATTEND Family Medicine
PROC: XW033E5 Introduction of Remdesivir Anti-infective into Peripheral Vein, Percutaneous Approach, New Technology Group 5 (ICD-10-PCS; principal; 2023-06-27)
DX: A41.9 Sepsis, unspecified organism (principal); J96.21 Acute and chronic respiratory failure with hypoxia; J12.82 Pneumonia due to coronavirus disease 2019; E44.1 Mild protein-calorie malnutrition; I50.9 Heart failure, unspecified; I11.0 Hypertensive heart disease with heart failure; U07.1 COVID-19; G40.909 Epilepsy, unspecified, not intractable, without status epilepticus; E03.9 Hypothyroidism, unspecified; K21.9 Gastro-esophageal reflux disease without esophagitis; E78.5 Hyperlipidemia, unspecified; F39 Unspecified mood [affective] disorder; E66.9 Obesity, unspecified; E83.42 Hypomagnesemia; Z79.82 Long term (current) use of aspirin; Z79.899 Other long term (current) drug therapy; Z68.35 Body mass index [BMI] 35.0-35.9, adult
CPT/HCPCS: 36415; 71045; 80048; 80053; 80076; 83605; 83735; 83880; 84484; 85025; 87040; 87081; 93005; 94640; 96365; 96367; 99285; J0456; J0696; J1100; J1644; J2270; J3475; J7060; J7613

== ENCOUNTER 2024-04-20 06:40 | Inpatient (IN) | payer MEDICAID, OTHER ==
[2024-04-20] VITALS (11 sets, daily range): BP systolic 92–96; BP diastolic 60–65; PULSE 57–73; RESP 14–18; TEMP 97–98.1; O2SAT 92–96
[~2024-04-20] VITALS: Ht 190.5 cm; Wt 107.5 kg
[~2024-04-20 06:40] MED LIST changes: +ALBU0.0912 INH; +ASPI81EC19 PO; +BUDE1AER IH; +DIVA500T1 PO; +DOCU-299 PO; +FISH100053 PO; +ISOS20TA13 PO; -LACT-103 PO; +LACT-191 PO; +LACT-85 PO; +LORA10TA19 PO; +OMEP40EC23 PO; +TOPI25TA41 PO; +TRAZ-343 PO
[2024-04-20] MEDS: NACL 0.9% 500 ML IV ONE (06:58)
[2024-04-20] MEDS: ATROPINE 0.5 MG/5 ML SYR IVP ONE (07:07)
[2024-04-20] MEDS: ATROPINE 1 MG/10 ML SYR IVP ONE (07:08)
[2024-04-20 07:33] LABS: ANION GAP 13.8 (8-16); CALCIUM 8.4 mg/dL (8.5-10.1); CARBON DIOXIDE 27.2 mmol/L (21-32); CREATININE 0.9 mg/dL (0.6-1.3)
[2024-04-20 07:37] LABS: INR 1.02 (0.8-1.2); PARTIAL THROMBOPLASTIN TIME 20.5 secs (22-35.6); PROTHROMBIN TIME 10.7 secs (10.8-13.4)
[2024-04-20 07:40] LABS: BASOPHILS % (AUTO) 0.8 % (0.0-2.0); EOSINOPHILS # (AUTO) 0.1 K/uL (0-0.4); EOSINOPHILS % (AUTO) 2.3 % (0.0-4.0); HEMATOCRIT 41.5 % (36-52); HEMOGLOBIN 13.9 g/dL (12.0-18.0); LYMPHOCYTES % (AUTO) 39.1 % (20.5-51.1); MEAN CORPUSCULAR HEMOGLOBIN 30 pg (27-31); MEAN CORPUSCULAR HGB CONC 34 g/dL (33-37); MEAN CORPUSCULAR VOLUME 89.9 fL (80-94); MONOCYTES # (AUTO) 0.3 K/uL (0.8-1.0); MONOCYTES % (AUTO) 6.6 % (1.7-9.3); NEUTROPHILS # (AUTO) 2.6 K/uL (1.8-7.7); NEUTROPHILS % (AUTO) 51.2 % (42.2-75.2); PLATELET COUNT (AUTO) 165 K/uL (140-450); RED BLOOD CELL COUNT(AUTO) 4.62 MIL/uL (4.20-6.10); RED CELL DISTRIBUTION WIDTH 15.7 % (11.6-13.7)
[2024-04-20 07:43] LABS: LACTIC ACID 2.8 mmol/L (0.4-2.0)
[2024-04-20 07:49] LABS: ALANINE AMINOTRANSFERASE 13 U/L (12-78); ALBUMIN 2.4 g/dL (3.4-5.0); ALKALINE PHOSPHATASE 36 U/L (50-136); ASPARTATE AMINOTRANSFERASE 21 U/L (15-37); BILIRUBIN,DIRECT 0.1 mg/dL (0.0-0.3); CREATINE KINASE, TOTAL 94 U/L (39-308); FREE T4 (FREE THYROXINE) 0.71 ng/dL (0.76-1.46); LIPASE 28 U/L (16-77); MAGNESIUM 1.5 mg/dL (1.8-2.4); THYROID STIMULATING HORMONE 12.71 uIU/mL (0.34-3.74); TOTAL BILIRUBIN 0.4 mg/dL (0.0-1.0); TOTAL PROTEIN, SERUM 5.2 g/dL (6.4-8.2)
[2024-04-20] MEDS ORDERED: cefTRIAXone 1,000 MG VIAL ONE (08:14)
[2024-04-20] MEDS ORDERED: ONDANSETRON 4 MG/2 ML VIAL ONE (08:17)
[2024-04-20] MEDS: ONDANSETRON 4 MG/2 ML VIAL IVP ONE (08:21)
[2024-04-20] MEDS: ACETAMINOPHEN 325 MG TAB PO ONE (08:33)
[2024-04-20 09:30] LABS: APPEARANCE,URINE CLEAR (CLEAR); BILIRUBIN,URINE NEGATIVE (NEGATIVE); BLOOD, URINE NEGATIVE (NEGATIVE); COLOR,URINE YELLOW (YELLOW); LEUKOCYTE ESTERASE ,URINE NEGATIVE (NEGATIVE); NITRITE, URINE NEGATIVE (NEGATIVE); PROTEIN,URINE TRACE (NEGATIVE); UGLUCOSE NEGATIVE (NEGATIVE)
[2024-04-20] MEDS ORDERED: AZITHROMYCIN 500 MG INJ VIAL IV ONE (09:57)
[2024-04-20] MEDS: AZITHROMYCIN 500 MG in DEXTROSE 5% 250 ML IV ONE (10:07)
[2024-04-20] MEDS ORDERED: ATI.5 PO (12:02)
[2024-04-20] MEDS ORDERED: LISI10TA30 PO (12:02)
[2024-04-20] MEDS ORDERED: LEVO0.1212 PO (12:02)
[2024-04-20] MEDS ORDERED: ONDANSETRON 4 MG/2 ML VIAL IVP PRN (12:55)
[2024-04-20] MEDS ORDERED: hydrALAZINE 20 MG/ML VIAL IVP PRN (13:00)
[2024-04-20] MEDS: NACL 0.9% 1,000 ML IV SCH (13:49)
[2024-04-20] MEDS: ACETAMINOPHEN 325 MG TAB PO PRN (17:14)
[2024-04-20] MEDS: LORazepam 1 MG TAB PO PRN (17:14)
[2024-04-21] VITALS (12 sets, daily range): BP systolic 100–166; BP diastolic 61–97; PULSE 53–75; RESP 14–20; TEMP 97–98.3; O2SAT 93–97
[2024-04-21 07:05] LABS: BASOPHILS % (AUTO) 0.7 % (0.0-2.0); EOSINOPHILS # (AUTO) 0.1 K/uL (0-0.4); HEMATOCRIT 41.3 % (36-52); LYMPHOCYTES # (AUTO) 1.4 K/uL (2.0-11.5); LYMPHOCYTES % (AUTO) 31.5 % (20.5-51.1); MEAN CORPUSCULAR HEMOGLOBIN 30 pg (27-31); MEAN CORPUSCULAR HGB CONC 34 g/dL (33-37); MEAN CORPUSCULAR VOLUME 87.9 fL (80-94); MONOCYTES # (AUTO) 0.4 K/uL (0.8-1.0); MONOCYTES % (AUTO) 9.8 % (1.7-9.3); NEUTROPHILS # (AUTO) 2.5 K/uL (1.8-7.7); PLATELET COUNT (AUTO) 163 K/uL (140-450); RED BLOOD CELL COUNT(AUTO) 4.69 MIL/uL (4.20-6.10); RED CELL DISTRIBUTION WIDTH 15.7 % (11.6-13.7); WHITE BLOOD COUNT (AUTO) 4.4 K/uL (4.8-10.8)
[2024-04-21 07:47] LABS: ALBUMIN 3.2 g/dL (3.4-5.0); CALCIUM 8.6 mg/dL (8.5-10.1); CARBON DIOXIDE 30.1 mmol/L (21-32); CREATININE 0.8 mg/dL (0.6-1.3); PHOSPHORUS 3.1 mg/dL (2.5-4.9); POTASSIUM 4.1 mmol/L (3.5-5.1); TOTAL BILIRUBIN 0.5 mg/dL (0.0-1.0); TOTAL PROTEIN, SERUM 6.8 g/dL (6.4-8.2)
[2024-04-21] MEDS: PANTOPRAZOLE 40 MG INJ VIAL IVP SCH (08:54)
[2024-04-21] MEDS: DOCUSATE SODIUM 100 MG GELCAP PO SCH (08:54)
[2024-04-21] MEDS ORDERED: traZODone 50 MG TAB PO PRN (10:40)
[2024-04-21] MEDS: ALBUTEROL 0.083% 2.5 MG/3 ML NEBU INH SCH ×2 (12:00→18:51)
[2024-04-21] MEDS: ZOLPIDEM 5 MG TAB PO PRN (21:15)
[2024-04-21] MEDS: DIVALPROEX 500 MG TABEC PO SCH (21:15)
[2024-04-22] VITALS (15 sets, daily range): BP systolic 120–152; BP diastolic 72–96; PULSE 52–80; RESP 16–20; TEMP 97.6–98.3; O2SAT 94–98
[2024-04-22 06:41] LABS: BASOPHILS % (AUTO) 0.6 % (0.0-2.0); EOSINOPHILS # (AUTO) 0.1 K/uL (0-0.4); EOSINOPHILS % (AUTO) 2.3 % (0.0-4.0); HEMATOCRIT 42.6 % (36-52); HEMOGLOBIN 14.4 g/dL (12.0-18.0); LYMPHOCYTES # (AUTO) 1.5 K/uL (2.0-11.5); LYMPHOCYTES % (AUTO) 25.5 % (20.5-51.1); MEAN CORPUSCULAR HEMOGLOBIN 30 pg (27-31); MEAN CORPUSCULAR HGB CONC 34 g/dL (33-37); MEAN CORPUSCULAR VOLUME 87.4 fL (80-94); MONOCYTES # (AUTO) 0.6 K/uL (0.8-1.0); MONOCYTES % (AUTO) 10.1 % (1.7-9.3); NEUTROPHILS # (AUTO) 3.5 K/uL (1.8-7.7); NEUTROPHILS % (AUTO) 61.5 % (42.2-75.2); PLATELET COUNT (AUTO) 171 K/uL (140-450); RED BLOOD CELL COUNT(AUTO) 4.87 MIL/uL (4.20-6.10); RED CELL DISTRIBUTION WIDTH 15.8 % (11.6-13.7); WHITE BLOOD COUNT (AUTO) 5.7 K/uL (4.8-10.8)
[2024-04-22 07:15] LABS: ALBUMIN 3.4 g/dL (3.4-5.0); CALCIUM 8.5 mg/dL (8.5-10.1); CARBON DIOXIDE 30.8 mmol/L (21-32); CREATININE 0.8 mg/dL (0.6-1.3); MAGNESIUM 1.8 mg/dL (1.8-2.4); PHOSPHORUS 2.6 mg/dL (2.5-4.9); POTASSIUM 3.8 mmol/L (3.5-5.1); TOTAL BILIRUBIN 0.6 mg/dL (0.0-1.0); TOTAL PROTEIN, SERUM 7.2 g/dL (6.4-8.2)
[2024-04-22] MEDS ORDERED: FUROSEMIDE 20 MG TAB PO SCH (09:00)
[2024-04-22] MEDS ORDERED: lisinopriL 10 MG TAB PO SCH (09:00)
[2024-04-22] MEDS: ATORVASTATIN 80 MG TAB PO SCH (09:24)
[2024-04-22] MEDS: ASPIRIN 81 MG TAB.CHEW PO SCH (09:24)
[2024-04-22] MEDS: TOPIRAMATE 25 MG TAB PO SCH (09:24)
[2024-04-22] MEDS ORDERED: LEVOTHYROXINE 0.025 MG TAB PO SCH (10:45)
[2024-04-22] MEDS: LEVOTHYROXINE 0.025 MG TAB ONE (11:35)
[2024-04-22] MEDS: LEVOTHYROXINE 0.025 MG, LEVOTHYROXINE 0.112 MG PO SCH (11:35)
[2024-04-22] MEDS: LEVOTHYROXINE 0.112 MG TAB ONE (11:35)
[2024-04-23] VITALS (8 sets, daily range): BP systolic 126–146; BP diastolic 64–88; PULSE 52–95; RESP 16–18; TEMP 97.8–98.2; O2SAT 93–98
[2024-04-23] MEDS: LEVOTHYROXINE 0.025 MG, LEVOTHYROXINE 0.112 MG PO SCH (05:56)
[2024-04-23] MEDS: LEVOTHYROXINE 0.025 MG TAB ONE (06:09)
[2024-04-23] MEDS: LEVOTHYROXINE 0.112 MG TAB ONE (06:10)
[2024-04-23 07:14] LABS: BASOPHILS % (AUTO) 0.5 % (0.0-2.0); EOSINOPHILS # (AUTO) 0.2 K/uL (0-0.4); EOSINOPHILS % (AUTO) 3.6 % (0.0-4.0); HEMATOCRIT 40.9 % (36-52); HEMOGLOBIN 14.1 g/dL (12.0-18.0); LYMPHOCYTES # (AUTO) 1.5 K/uL (2.0-11.5); LYMPHOCYTES % (AUTO) 29.3 % (20.5-51.1); MEAN CORPUSCULAR HEMOGLOBIN 30 pg (27-31); MEAN CORPUSCULAR HGB CONC 35 g/dL (33-37); MONOCYTES # (AUTO) 0.4 K/uL (0.8-1.0); MONOCYTES % (AUTO) 7.6 % (1.7-9.3); NEUTROPHILS # (AUTO) 3.1 K/uL (1.8-7.7); PLATELET COUNT (AUTO) 161 K/uL (140-450); RED BLOOD CELL COUNT(AUTO) 4.65 MIL/uL (4.20-6.10); RED CELL DISTRIBUTION WIDTH 15.8 % (11.6-13.7); WHITE BLOOD COUNT (AUTO) 5.2 K/uL (4.8-10.8)
[2024-04-23 07:20] LABS: ALBUMIN 3.2 g/dL (3.4-5.0); ANION GAP 9.3 (8-16); CALCIUM 8.4 mg/dL (8.5-10.1); CARBON DIOXIDE 30.7 mmol/L (21-32); CREATININE 0.8 mg/dL (0.6-1.3); MAGNESIUM 1.9 mg/dL (1.8-2.4); PHOSPHORUS 3.2 mg/dL (2.5-4.9); TOTAL BILIRUBIN 0.5 mg/dL (0.0-1.0); TOTAL PROTEIN, SERUM 6.8 g/dL (6.4-8.2)
[2024-04-23] MEDS: lisinopriL 10 MG TAB PO SCH (10:36)
[2024-04-23] MEDS ORDERED: LEVO137C2 PO (14:46)
== END 2024-04-23 18:00 | disposition home or self-care (01) | DRG 861 ==
LOC: MED 06:40 → MTU 12:57
PROVIDERS: ADMIT Student in an Organized Health Care Education/Training Program; ATTEND Student in an Organized Health Care Education/Training Program
DX: R53.1 Weakness (principal); E87.20 Acidosis, unspecified; I11.0 Hypertensive heart disease with heart failure; I95.9 Hypotension, unspecified; I50.9 Heart failure, unspecified; R00.1 Bradycardia, unspecified; E03.9 Hypothyroidism, unspecified; K21.9 Gastro-esophageal reflux disease without esophagitis; E78.5 Hyperlipidemia, unspecified; J45.909 Unspecified asthma, uncomplicated; G40.909 Epilepsy, unspecified, not intractable, without status epilepticus; T46.4X5A Adverse effect of angiotensin-converting-enzyme inhibitors, initial encounter; T46.3X5A Adverse effect of coronary vasodilators, initial encounter; Z79.82 Long term (current) use of aspirin; Z79.899 Other long term (current) drug therapy; Y92.89 Other specified places as the place of occurrence of the external cause
CPT/HCPCS: 36415; 70450; 71045; 80048; 80053; 80076; 81003; 82550; 83605; 83690; 83735; 83880; 84100; 84439; 84443; 84484; 85025; 85610; 85730; 87040; 87081; 93005; 94640; 96365; 96367; 96375; 97116; 97163-GP; 99285; C9113; J0456; J0461; J0696; J2405; J7613